=== PATIENT | female | born 1960 | race Caucasian/White ===

== ENCOUNTER 2018-09-26 20:59 | Inpatient (IN) | payer OTHER ==
[~2018-09-26] VITALS: Ht 167.6 cm; Wt 108.9 kg
--- NOTE | 2018-09-26 21:49 | PHYS DOC ---
Adult General Chief Complaint Chief Complaint: SKIN PROBLEM HPI HPI Patient is a 58 year old female presents to the ED complaining of left calf pain 2 days ago. Patient states that she felt pain to her left lower leg. States she looked and saw bite like kavon to left posterior calf. States she's been in and out of the hospital taking care of her whom has been admitted for MRSA to lower leg. States she noticed some redness surrounding the bite as well as swelling to left calf. Describes the pain as sharp. Rates the pain as 7 out of 10. Denies injury, recent travel, nausea/vomiting, fever, paresthesias, chest pain, shortness of breath. (YOAN BLUNT) Review of Systems Review of Systems Constitutional: Denies fever or chills [] Eyes: Denies change in visual acuity, redness, or eye pain [] HENT: Denies nasal congestion or sore throat [] Respiratory: Denies cough or shortness of breath [] Cardiovascular: No additional information not addressed in HPI [] GI: Denies abdominal pain, nausea, vomiting, bloody stools or diarrhea [] : Denies dysuria or hematuria [] Musculoskeletal: Complains of left lower calf pain. Denies back pain or joint pain [] Integument: Denies rash or skin lesions [] Neurologic: Denies headache, focal weakness or sensory changes [] All other systems were reviewed and found to be within normal limits, except as documented in this note. (YOAN BLUNT) Current Medications Current Medications Current Medications Medications (Trade) Dose Ordered Sig/Angela Start Time Stop Time Status Last Admin Dose Admin Acetaminophen/ Hydrocodone Bitart (Lortab 5/325) 1 tab 1X ONCE 09/26/18 22:00 09/26/18 22:19 DC 09/26/18 22:42 1 TAB (EVELINE ROJAS MD) Allergies Allergies Allergies Coded Allergies Type Severity Reaction Last Updated Verified No Known Drug Allergies 09/26/18 No (EVELINE ROJAS MD) Physical Exam Physical Exam Constitutional: Well developed, well nourished, no acute distress, non-toxic appearance. [] HENT: Normocephalic, atraumatic Eyes: PERRLA, EOMI, conjunctiva normal, no discharge. [] Neck: Normal range of motion, no tenderness, supple, no stridor. [] Cardiovascular:Heart rate regular rhythm, no murmur [] Lungs & Thorax: Bilateral breath sounds clear to auscultation [] Abdomen: Bowel sounds normal, soft, no tenderness, no masses, no pulsatile masses. [] Skin: Warm, dry, no erythema, no rash. [] Back: No tenderness, no CVA tenderness. [] Extremities: mild left calf tenderness/swelling. small bite like kavon to posterior left calf with surrounding erythema and warmth that is circumferential to left lower leg. no cyanosis, no clubbing, ROM intact, no edema. [] Neurologic: Alert and oriented X 3, normal motor function, normal sensory function, no focal deficits noted. [] Psychologic: Affect normal, judgement normal, mood normal. [] (YOAN BLUNT) Current Patient Data Vital Signs Vital Signs Date Time Temp Pulse Resp B/P (MAP) Pulse Ox O2 Delivery O2 Flow Rate FiO2 09/26/18 23:11 88 16 157/94 (115) 96 Room Air 09/26/18 21:50 98.3 98.3 (EVELINE ROJAS MD) Lab Values Laboratory Tests Test 09/26/18 22:50 White Blood Count 9.9 x10^3/uL (4.0-11.0) Red Blood Count 3.95 x10^6/uL (3.50-5.40) Hemoglobin 13.1 g/dL (12.0-15.5) Hematocrit 38.8 % (36.0-47.0) Mean Corpuscular Volume 98 fL (79-100) Mean Corpuscular Hemoglobin 33 pg (25-35) Mean Corpuscular Hemoglobin Concent 34 g/dL (31-37) Red Cell Distribution Width 13.2 % (11.5-14.5) Platelet Count 268 x10^3/uL (140-400) Neutrophils (%) (Auto) 71 % (31-73) Lymphocytes (%) (Auto) 20 % (24-48) L Monocytes (%) (Auto) 8 % (0-9) Eosinophils (%) (Auto) 1 % (0-3) Basophils (%) (Auto) 0 % (0-3) Neutrophils # (Auto) 7.1 x10^3uL (1.8-7.7) Lymphocytes # (Auto) 1.9 x10^3/uL (1.0-4.8) Monocytes # (Auto) 0.8 x10^3/uL (0.0-1.1) Eosinophils # (Auto) 0.1 x10^3/uL (0.0-0.7) Basophils # (Auto) 0.0 x10^3/uL (0.0-0.2) Erythrocyte Sedimentation Rate 27 (0-25) H Sodium Level 140 mmol/L (136-145) Potassium Level 4.0 mmol/L (3.5-5.1) Chloride Level 102 mmol/L (98-107) Carbon Dioxide Level 30 mmol/L (21-32) Anion Gap 8 (6-14) Blood Urea Nitrogen 13 mg/dL (7-20) Creatinine 0.8 mg/dL (0.6-1.0) Estimated GFR (Cockcroft-Gault) 73.9 Glucose Level 107 mg/dL (70-99) H Calcium Level 8.9 mg/dL (8.5-10.1) C-Reactive Protein, Quantitative 32.3 mg/L (0-3.3) H Laboratory Tests 09/26/18 22:50 Laboratory Tests 09/26/18 22:50 (EVELINE ROJAS MD) Lab Values Laboratory Tests Test 09/26/18 22:50 White Blood Count 9.9 x10^3/uL (4.0-11.0) Red Blood Count 3.95 x10^6/uL (3.50-5.40) Hemoglobin 13.1 g/dL (12.0-15.5) Hematocrit 38.8 % (36.0-47.0) Mean Corpuscular Volume 98 fL (79-100) Mean Corpuscular Hemoglobin 33 pg (25-35) Mean Corpuscular Hemoglobin Concent 34 g/dL (31-37) Red Cell Distribution Width 13.2 % (11.5-14.5) Platelet Count 268 x10^3/uL (140-400) Neutrophils (%) (Auto) 71 % (31-73) Lymphocytes (%) (Auto) 20 % (24-48) L Monocytes (%) (Auto) 8 % (0-9) Eosinophils (%) (Auto) 1 % (0-3) Basophils (%) (Auto) 0 % (0-3) Neutrophils # (Auto) 7.1 x10^3uL (1.8-7.7) Lymphocytes # (Auto) 1.9 x10^3/uL (1.0-4.8) Monocytes # (Auto) 0.8 x10^3/uL (0.0-1.1) Eosinophils # (Auto) 0.1 x10^3/uL (0.0-0.7) Basophils # (Auto) 0.0 x10^3/uL (0.0-0.2) Erythrocyte Sedimentation Rate 27 (0-25) H Sodium Level 140 mmol/L (136-145) Potassium Level 4.0 mmol/L (3.5-5.1) Chloride Level 102 mmol/L (98-107) Carbon Dioxide Level 30 mmol/L (21-32) Anion Gap 8 (6-14) Blood Urea Nitrogen 13 mg/dL (7-20) Creatinine 0.8 mg/dL (0.6-1.0) Estimated GFR (Cockcroft-Gault) 73.9 Glucose Level 107 mg/dL (70-99) H Calcium Level 8.9 mg/dL (8.5-10.1) C-Reactive Protein, Quantitative 32.3 mg/L (0-3.3) H Laboratory Tests 09/26/18 22:50 Laboratory Tests 09/26/18 22:50 (YOAN BLUNT) EKG EKG [] (YOAN BLUNT) Radiology/Procedures Radiology/Procedures [] (YOAN BLUNT) Course & Med Decision Making Course & Med Decision Making Pertinent Labs and Imaging studies reviewed. (See chart for details) []Discussed lab and imaging findings with patient. Small abscess seen on US. Negative for DVT. Incision and drainage completed. Mild purulent discharge from bite area. Patient tolerated well. Patient has surrounding erythema to lower leg that is circumferential. Will admit for IV antibiotics. Patient given vancomycin and Zosyn in the ED. Patient resting comfortably at this time. Attending physician will discuss with hospitalist for admission. (YOAN BLUNT) Course & Med Decision Making Staff Physician Addendum: I was working in the ER during the course of this patient's visit. I was available for consultation as needed, but I was not directly involved in the care of this patient. (EVELINE ROJAS MD) Dragon Disclaimer Dragon Disclaimer This electronic medical record was generated, in whole or in part, using a voice recognition dictation system. (YOAN BLUNT) Departure Departure Impression: Primary Impression: Cellulitis, leg Additional Impression: Abscess Disposition: ADMITTED INPATIENT Admitting Physician: Other (DONNELL) (YOAN BLUNT) Condition: STABLE Referrals: JANAY GREY MD (PCP) Problem Qualifiers YOAN BLUNT Sep 26, 2018 21:49 EVELINE ROJAS MD Sep 30, 2018 20:19
[2018-09-26] MEDS ORDERED: HYDROcodone/APAP 5/325MG 1 TAB TABLET PO ONE (22:00)
[2018-09-26] MEDS ORDERED: LISI1TAB7 PO (22:07)
[2018-09-26 22:58] LABS: BASO % 0 % (0-3); EOS # 0.1 x10^3/uL (0.0-0.7); EOS % 1 % (0-3); HEMATOCRIT 38.8 % (36.0-47.0); HEMOGLOBIN 13.1 g/dL (12.0-15.5); LYMPH # 1.9 x10^3/uL (1.0-4.8); LYMPH % 20 % (24-48); MEAN CORPUSCULAR HEMOGLOBIN 33 pg (25-35); MEAN CORPUSCULAR HGB CONC 34 g/dL (31-37); MEAN CORPUSCULAR VOLUME 98 fL (79-100); MONO # 0.8 x10^3/uL (0.0-1.1); MONO % 8 % (0-9); NEUT # 7.1 x10^3uL (1.8-7.7); NEUT % 71 % (31-73); PLATELET COUNT 268 x10^3/uL (140-400); RED BLOOD COUNT 3.95 x10^6/uL (3.50-5.40); RED CELL DISTRIBUTION WIDTH 13.2 % (11.5-14.5); WHITE BLOOD COUNT 9.9 x10^3/uL (4.0-11.0)
[2018-09-26 23:06] LABS: CALCIUM 8.9 mg/dL (8.5-10.1); CREATININE 0.8 mg/dL (0.6-1.0); GFR 73.9
[2018-09-26 23:08] LABS: C-REACTIVE PROTEIN 32.3 mg/L (0-3.3)
--- NOTE | 2018-09-26 23:58 | RAD ---
Left lower extremity venous duplex Doppler ultrasound HISTORY: Left leg pain and swelling, but by, redness. FINDINGS: No DVT with compressibility, patent color Doppler blood flow and augmentation of blood flow the left common femoral vein, profunda femoral vein, superficial femoral vein, popliteal vein and posterior tibial and peroneal veins in the calf. At the left mid calf clinical area of redness and there is a 6 mm small subcutaneous hypoechoic pocket of fluid a small abscess is possible. There are also superficial venous varicosities of the calf. IMPRESSION: Negative left leg for DVT. Subcentimeter hypoechoic fluid collection at the calf subcutaneous tissues a small abscess is possible. Electronically signed by: Franklyn Garcia MD (09/26/2018 11:55 PM) [id number]
[2018-09-27] MEDS ORDERED: LIDOCAINE WITH 8.4% SOD BICARB 3 ML DISP.SYRIN. INJ ONE (00:15)
[2018-09-27] MEDS ORDERED: VANCOMYCIN 1.25 GM in IV NORMAL SALINE 250ML 250 ML IV ONE (00:45)
[2018-09-27] MEDS ORDERED: PIPERACILLIN/TAZOBACTAM 3.375 GM in IV NORMAL SALINE 50ML 50 ML IV ONE (01:00)
[2018-09-27] MEDS ORDERED: VANCOMYCIN 2 GM in IV NORMAL SALINE 500ML BAG 500 ML IV ONE (01:00)
[2018-09-27] MEDS ORDERED: ALPR1TAB6 PO (02:47)
[2018-09-27 03:00] VITALS: BP 147/92
[2018-09-27] MEDS: HYDROcodone/APAP 5/325MG 1 TAB TABLET PO PRN ×3 (03:16→19:32)
--- NOTE | 2018-09-27 03:33 | NUR ---
pt was admitted to the unit at approximally 0130 from ED via wheel chair. Report received from Levy. Vitals stable. Heart Health packet given, cafeteria and mediation papers explained.
[2018-09-27 07:00] VITALS: BP 121/73
--- NOTE | 2018-09-27 08:11 | RAD ---
3 views left knee 09/26/2018 9:37 PM Indication: PAIN, NO KNOWN INJURY Comparison: None Findings: Meniscal calcification is noted. No fracture or dislocation is seen. Joint spaces appear relatively preserved. No acute soft tissue injury is seen. IMPRESSION: 1. No evidence of acute osseous abnormality 2. Meniscal calcification noted. Electronically signed by: Josr De Jesus MD (09/27/2018 8:08 AM) [id number]
[2018-09-27 11:00] VITALS: BP 115/72
[2018-09-27 15:00] VITALS: BP 116/77
--- NOTE | 2018-09-27 15:56 | PDOC1 ---
History and Physical Date of Admission Date of Admission DATE: 09/27/18 TIME: 15:45 Identification/Chief Complaint Chief Complaint LE swelling Problems: (1) Abscess (2) Cellulitis, leg Source Source: Chart review, Patient History of Present Illness History of Present Illness 58 year old female hx of HTN and anxiety who presents with 1 day hx of LLE swelling, redness and pain. reports seeing bite drew on posterior calf. patient 's currently hospitalized with cellulitis. pain as sharp and 7 out of 10. Denies injury. no fever or paresthesias. no chest pain. no hx of DVT or PE. no prior hx of cellulitis. Past Medical History Past Medical History HTN, anxiety Family History Family History denies Social History Smoke: <1 pack per day ALCOHOL: none Drugs: None Current Medications Current Medications Current Medications Acetaminophen/ Hydrocodone Bitart (Lortab 5/325) 1 tab 1X ONCE PO Last administered on 09/26/18at 22:42; Start 09/26/18 at 22:00; Stop 09/26/18 at 22:19 ; Status DC Lidocaine/Sodium Bicarbonate (Buffered Lidocaine 1%) 3 ml 1X ONCE INJ Last administered on 09/27/18at 00:15; Start 09/27/18 at 00:15; Stop 09/27/18 at 00:17 ; Status DC Piperacillin Sod/ Tazobactam Sod 3.375 gm/Sodium Chloride 50 ml @ 100 mls/hr 1X ONCE IV Last administered on 09/27/18at 01:18; Start 09/27/18 at 01:00; Stop 09/27/18 at 01:29; Status DC Vancomycin HCl 1.25 gm/Sodium Chloride 250 ml @ 166.667 mls/hr 1X ONCE IV ; Start 09/27/18 at 00:45; Stop 09/27/18 at 00:50; Status DC Vancomycin HCl 2 gm/Sodium Chloride 500 ml @ 250 mls/hr 1X ONCE IV Last administered on 09/27/18at 02:20; Start 09/27/18 at 01:00; Stop 09/27/18 at 02:59 ; Status DC Acetaminophen/ Hydrocodone Bitart (Lortab 5/325) 1 tab PRN Q4HRS PRN PO PAIN Last administered on 09/27/18at 10:52; Start 09/27/18 at 03:00 Vancomycin HCl (Vanco Per Pharmacy) 1 each PRN DAILY PRN MC SEE COMMENTS; Start 09/27/18 at 15:30 Cefepime HCl (Maxipime) 1 gm Q8HRS IVP ; Start 09/27/18 at 15:30 Vancomycin HCl 2 gm/Sodium Chloride 500 ml @ 250 mls/hr Q12H IV ; Start at 16:00 Non-Formulary Medication (Lisinopril/ Hydrochlorothiazide (Lisinopril-Hctz 20- 25 Mg Tab)) 1 tab DAILY PO ; Start 09/28/18 at 09:00; Status UNV Active Scripts Active Reported Alprazolam 1 Mg Tablet 1 Tab PO DAILY(AT BEDTIME) Lisinopril-Hctz 20-25 Mg Tab (Lisinopril/Hydrochlorothiazide) 1 Each Tablet 1 Tab PO DAILY Allergies Allergies: Coded Allergies: No Known Drug Allergies (Unverified , 09/26/18) ROS Review of System CONSTITUTIONAL: No fever or chills EYES: No recent changes SKIN: No rash or itching CARDIOVASCULAR: No chest pain, syncope, palpitations, or edema RESPIRATORY: No SOB or cough GASTROINTESTINAL: No nausea, vomiting or abdominal pain NEUROLOGICAL: No headaches or weakness ENDOCRINE: No cold or heat intolerance GENITOURINARY: No urgency or frequency of urination MUSCULOSKELETAL: No back pain or joint pain LYMPHATICS: No enlarged lymph nodes PSYCHIATRIC: No anxiety or depression Physical Exam Physical Exam GENERAL: No apparent distress. Alert and oriented. HEENT: Head normocephalic, atraumatic. NECK: Supple LUNGS: Clear to auscultation. HEART: RRR, S1, S2 present, pulses intact ABDOMEN: Soft, positive bowel sounds. EXTREMITIES: LLE swelling with bandage NEUROLOGIC: Normal speech, normal tone PSYCHIATRIC: Normal affect, normal mood. SKIN: No ulceration. Vitals Vitals Vital Signs Date Time Temp Pulse Resp B/P (MAP) Pulse Ox O2 Delivery O2 Flow Rate FiO2 09/27/18 11:52 14 95 Room Air 09/27/18 11:00 98.2 78 115/72 (86) 98.2 Labs Labs Laboratory Tests Test 09/26/18 22:50 09/27/18 01:18 White Blood Count 9.9 x10^3/uL (4.0-11.0) Red Blood Count 3.95 x10^6/uL (3.50-5.40) Hemoglobin 13.1 g/dL (12.0-15.5) Hematocrit 38.8 % (36.0-47.0) Mean Corpuscular Volume 98 fL (79-100) Mean Corpuscular Hemoglobin 33 pg (25-35) Mean Corpuscular Hemoglobin Concent 34 g/dL (31-37) Red Cell Distribution Width 13.2 % (11.5-14.5) Platelet Count 268 x10^3/uL (140-400) Neutrophils (%) (Auto) 71 % (31-73) Lymphocytes (%) (Auto) 20 % (24-48) Monocytes (%) (Auto) 8 % (0-9) Eosinophils (%) (Auto) 1 % (0-3) Basophils (%) (Auto) 0 % (0-3) Neutrophils # (Auto) 7.1 x10^3uL (1.8-7.7) Lymphocytes # (Auto) 1.9 x10^3/uL (1.0-4.8) Monocytes # (Auto) 0.8 x10^3/uL (0.0-1.1) Eosinophils # (Auto) 0.1 x10^3/uL (0.0-0.7) Basophils # (Auto) 0.0 x10^3/uL (0.0-0.2) Erythrocyte Sedimentation Rate 27 (0-25) Sodium Level 140 mmol/L (136-145) Potassium Level 4.0 mmol/L (3.5-5.1) Chloride Level 102 mmol/L (98-107) Carbon Dioxide Level 30 mmol/L (21-32) Anion Gap 8 (6-14) Blood Urea Nitrogen 13 mg/dL (7-20) Creatinine 0.8 mg/dL (0.6-1.0) Estimated GFR (Cockcroft-Gault) 73.9 Glucose Level 107 mg/dL (70-99) Calcium Level 8.9 mg/dL (8.5-10.1) C-Reactive Protein, Quantitative 32.3 mg/L (0-3.3) Lactic Acid Level 0.7 mmol/L (0.4-2.0) Laboratory Tests Test 09/26/18 22:50 09/27/18 01:18 White Blood Count 9.9 x10^3/uL (4.0-11.0) Red Blood Count 3.95 x10^6/uL (3.50-5.40) Hemoglobin 13.1 g/dL (12.0-15.5) Hematocrit 38.8 % (36.0-47.0) Mean Corpuscular Volume 98 fL (79-100) Mean Corpuscular Hemoglobin 33 pg (25-35) Mean Corpuscular Hemoglobin Concent 34 g/dL (31-37) Red Cell Distribution Width 13.2 % (11.5-14.5) Platelet Count 268 x10^3/uL (140-400) Neutrophils (%) (Auto) 71 % (31-73) Lymphocytes (%) (Auto) 20 % (24-48) Monocytes (%) (Auto) 8 % (0-9) Eosinophils (%) (Auto) 1 % (0-3) Basophils (%) (Auto) 0 % (0-3) Neutrophils # (Auto) 7.1 x10^3uL (1.8-7.7) Lymphocytes # (Auto) 1.9 x10^3/uL (1.0-4.8) Monocytes # (Auto) 0.8 x10^3/uL (0.0-1.1) Eosinophils # (Auto) 0.1 x10^3/uL (0.0-0.7) Basophils # (Auto) 0.0 x10^3/uL (0.0-0.2) Erythrocyte Sedimentation Rate 27 (0-25) Sodium Level 140 mmol/L (136-145) Potassium Level 4.0 mmol/L (3.5-5.1) Chloride Level 102 mmol/L (98-107) Carbon Dioxide Level 30 mmol/L (21-32) Anion Gap 8 (6-14) Blood Urea Nitrogen 13 mg/dL (7-20) Creatinine 0.8 mg/dL (0.6-1.0) Estimated GFR (Cockcroft-Gault) 73.9 Glucose Level 107 mg/dL (70-99) Calcium Level 8.9 mg/dL (8.5-10.1) C-Reactive Protein, Quantitative 32.3 mg/L (0-3.3) Lactic Acid Level 0.7 mmol/L (0.4-2.0) VTE Prophylaxis Ordered VTE Prophylaxis Devices: No VTE Pharmacological Prophylaxi: Yes Assessment/Plan Assessment/Plan ASSESSMENT LLE cellulitis s/p I and D in ER HTN PLAN - admit to medical floor bed - obtain blood cultures - US negative for DVT - xray negative - continue vanc and zosyn - restart home BP meds - local wound care - heparin for dvt ppx - full code TRINITY JACOBO MD Sep 27, 2018 15:56
[2018-09-27] MEDS: CEFEPIME HCL IV Push 1 GM VIAL. IVP SCH ×2 (15:59→22:02)
[2018-09-27] MEDS: hydroCHLOROthiazide 25 MG TABLET PO SCH (16:00)
[2018-09-27] MEDS: HEPARIN for SUB-Q USE 5,000 UNIT/ML VIAL. SQ SCH ×2 (16:00→19:33)
[2018-09-27] MEDS: LISINOPRIL 20 MG TABLET PO SCH (16:00)
[2018-09-27] MEDS: VANCOMYCIN 2 GM in IV NORMAL SALINE 500ML BAG 500 ML IV SCH (16:05)
[2018-09-27 19:00] VITALS: BP 138/84
[2018-09-27] MEDS: VANCOMYCIN PER PHARMACY MC PRN (19:34)
--- NOTE | 2018-09-27 19:39 | NUR ---
Pharmacy Vancomycin Dosing Note S:Consulted to monitor and dose vancomycin started 09/27/18. O:ISIAHSCARLETT Wong is a 58 year old F with Cellulitis . Height: 5 feet, 7 inches Weight: 127.630877 kg [place] Body Weight: 61.60 Adjusted Body Weight: 87.76 Dosing Weight: Actual Other Antibiotics: CEFEPIME 09/27 - LABS: Last BUN: 13 Last Creatinine: 0.8 Creatinine Clearance: >100 mL/min Last WBC: 9.9 Last Procalcitonin: - Tmax (past 24 hours): 98.8 Microbiology: 09/27 PENDING I/O: 550/- Drug Levels: Last level: on at Last dose given 09/27/18 at 1605 Vancomycin Dosing: Loading Dose: x1 Dosing Weight: Actual Target Trough: 10-20 A: Based on: WEIGHT, CRCL>100, CELLULITIS (NON-SEVERE INFECTION), P: 1. INITIATE Vancomycin 2000 mg IV q12h 2. Follow up Trough level on 09/29/18 at 0330 3. Pharmacy will continue to monitor, follow and adjust therapy as needed. JASON GUERRA [facility], 09/27/18 [id number]
[2018-09-27 23:00] VITALS: BP 130/69
[2018-09-28 03:00] VITALS: BP 125/74
[2018-09-28] MEDS: HYDROcodone/APAP 5/325MG 1 TAB TABLET PO PRN ×2 (04:07→11:54)
[2018-09-28] MEDS: VANCOMYCIN 2 GM in IV NORMAL SALINE 500ML BAG 500 ML IV SCH ×2 (04:08→16:31)
[2018-09-28] MEDS: HEPARIN for SUB-Q USE 5,000 UNIT/ML VIAL. SQ SCH ×3 (06:00→22:00)
[2018-09-28] MEDS: CEFEPIME HCL IV Push 1 GM VIAL. IVP SCH ×3 (06:05→22:00)
[2018-09-28 06:45] LABS: CREATININE 0.6 mg/dL (0.6-1.0)
[2018-09-28 07:00] VITALS: BP 113/76
[2018-09-28] MEDS: LISINOPRIL 20 MG TABLET PO SCH (08:31)
[2018-09-28] MEDS: hydroCHLOROthiazide 25 MG TABLET PO SCH (08:31)
--- NOTE | 2018-09-28 09:21 | NUR ---
SW following pt for anticipated dc needs. Chart reviewed and DW RN. Pt lives at home with spouse who is also currently in admitted at [facility]. PT/OT pending. SW will await for PT/OT recommendations to assess skilled needs. Will continue to follow.
[2018-09-28 11:00] VITALS: BP 116/68
--- NOTE | 2018-09-28 12:04 | PDOC ---
PROGRESS NOTES Chief Complaint Chief Complaint Lowe Extremity swelling and pain Cellulitis HTN Anxiety History of Present Illness History of Present Illness Pt seen and examined this morning. Pt sitting upright in husbands room next door. Pt states the pain and swelling are improving. Denies F/C, N/V Vitals Vitals Vital Signs Date Time Temp Pulse Resp B/P (MAP) Pulse Ox O2 Delivery O2 Flow Rate FiO2 09/28/18 11:00 98.3 78 18 116/68 (84) 96 Room Air 98.3 Physical Exam General: Alert, Oriented X3, Cooperative, No acute distress Heart: Regular rate, Normal S1, Normal S2, No murmurs Lungs: Clear, Other (No crackles, wheezes or rales) Abdomen: Normal bowel sounds, Soft, No tenderness, No masses Extremities: No clubbing, No cyanosis, Normal pulses, Other (LE swelling, errythema receding from margin, sligt TTP) Skin: No breakdown, Other (dressing inplace C/D/I) Labs LABS Laboratory Tests Test 09/28/18 06:00 Creatinine 0.6 mg/dL (0.6-1.0) Estimated GFR (Cockcroft-Gault) 103.0 Review of Systems Review of Systems Denies Fevers/Chills Denies Nausea/Vomiting Denies Chest pain, Shortness of Air Assessment and Plan Assessmemt and Plan Assessment: LE Cellulitis- Improving: afebrile, erythema receding HTN Anxiety u/s (-) for DVT I/D in ER Blood Cx revealing staph 1/2 bottles, likely contaminant Plan: ABX- Vancomycin and Zosyn, Pharmacy following Local WC Likely discharge home tomorrow Home Meds- Lisinopril Heparin offered for DVT ppx, pt respectfully declined and states she has been up out of bed and is walking around routinely. Recheck labs in AM PT/OT orders Comment Review of Relevant I have reviewed the following items kavon (where applicable) has been applied. Labs Laboratory Tests Test 09/26/18 22:50 09/27/18 01:18 09/28/18 06:00 White Blood Count 9.9 x10^3/uL (4.0-11.0) Red Blood Count 3.95 x10^6/uL (3.50-5.40) Hemoglobin 13.1 g/dL (12.0-15.5) Hematocrit 38.8 % (36.0-47.0) Mean Corpuscular Volume 98 fL (79-100) Mean Corpuscular Hemoglobin 33 pg (25-35) Mean Corpuscular Hemoglobin Concent 34 g/dL (31-37) Red Cell Distribution Width 13.2 % (11.5-14.5) Platelet Count 268 x10^3/uL (140-400) Neutrophils (%) (Auto) 71 % (31-73) Lymphocytes (%) (Auto) 20 % (24-48) Monocytes (%) (Auto) 8 % (0-9) Eosinophils (%) (Auto) 1 % (0-3) Basophils (%) (Auto) 0 % (0-3) Neutrophils # (Auto) 7.1 x10^3uL (1.8-7.7) Lymphocytes # (Auto) 1.9 x10^3/uL (1.0-4.8) Monocytes # (Auto) 0.8 x10^3/uL (0.0-1.1) Eosinophils # (Auto) 0.1 x10^3/uL (0.0-0.7) Basophils # (Auto) 0.0 x10^3/uL (0.0-0.2) Erythrocyte Sedimentation Rate 27 (0-25) Sodium Level 140 mmol/L (136-145) Potassium Level 4.0 mmol/L (3.5-5.1) Chloride Level 102 mmol/L (98-107) Carbon Dioxide Level 30 mmol/L (21-32) Anion Gap 8 (6-14) Blood Urea Nitrogen 13 mg/dL (7-20) Creatinine 0.8 mg/dL (0.6-1.0) 0.6 mg/dL (0.6-1.0) Estimated GFR (Cockcroft-Gault) 73.9 103.0 Glucose Level 107 mg/dL (70-99) Calcium Level 8.9 mg/dL (8.5-10.1) C-Reactive Protein, Quantitative 32.3 mg/L (0-3.3) Lactic Acid Level 0.7 mmol/L (0.4-2.0) Laboratory Tests Test 09/28/18 06:00 Creatinine 0.6 mg/dL (0.6-1.0) Estimated GFR (Cockcroft-Gault) 103.0 Microbiology 09/27/18 Blood Culture - Final, Complete Medications Current Medications Acetaminophen/ Hydrocodone Bitart (Lortab 5/325) 1 tab 1X ONCE PO Last administered on 09/26/18at 22:42; Start 09/26/18 at 22:00; Stop 09/26/18 at 22:19 ; Status DC Lidocaine/Sodium Bicarbonate (Buffered Lidocaine 1%) 3 ml 1X ONCE INJ Last administered on 09/27/18at 00:15; Start 09/27/18 at 00:15; Stop 09/27/18 at 00:17 ; Status DC Piperacillin Sod/ Tazobactam Sod 3.375 gm/Sodium Chloride 50 ml @ 100 mls/hr 1X ONCE IV Last administered on 09/27/18at 01:18; Start 09/27/18 at 01:00; Stop 09/27/18 at 01:29; Status DC Vancomycin HCl 1.25 gm/Sodium Chloride 250 ml @ 166.667 mls/hr 1X ONCE IV ; Start 09/27/18 at 00:45; Stop 09/27/18 at 00:50; Status DC Vancomycin HCl 2 gm/Sodium Chloride 500 ml @ 250 mls/hr 1X ONCE IV Last administered on 09/27/18at 02:20; Start 09/27/18 at 01:00; Stop 09/27/18 at 02:59 ; Status DC Acetaminophen/ Hydrocodone Bitart (Lortab 5/325) 1 tab PRN Q4HRS PRN PO PAIN Last administered on 09/28/18at 04:07; Start 09/27/18 at 03:00 Vancomycin HCl (Vanco Per Pharmacy) 1 each PRN DAILY PRN MC SEE COMMENTS Last administered on 09/27/18at 19:34; Start 09/27/18 at 15:30 Cefepime HCl (Maxipime) 1 gm Q8HRS IVP Last administered on 09/28/18at 06:05; Start 09/27/18 at 15:30 Vancomycin HCl 2 gm/Sodium Chloride 500 ml @ 250 mls/hr Q12H IV Last administered on 09/28/18at 04:08; Start 09/27/18 at 16:00 Lisinopril (Prinivil) 20 mg DAILY PO Last administered on 09/28/18at 08:31; Start 09/27/18 at 16:00 Hydrochlorothiazide (Hydrodiuril) 25 mg DAILY PO Last administered on at 08:31; Start 09/27/18 at 16:00 Heparin Sodium (Porcine) (Heparin Sodium) 5,000 unit Q8HRS SQ ; Start 09/27/18 at 16:00 Vancomycin HCl (Vancomycin Trough Level) 1 each 1X ONCE MC ; Start 09/29/18 at 03:30; Stop 09/29/18 at 03:31 Active Scripts Active Reported Alprazolam 1 Mg Tablet 1 Tab PO DAILY(AT BEDTIME) Lisinopril-Hctz 20-25 Mg Tab (Lisinopril/Hydrochlorothiazide) 1 Each Tablet 1 Tab PO DAILY Vitals/I & O Vital Sign - Last 24 Hours 09/27/18 09/27/18 09/27/18 09/27/18 15:00 19:00 19:32 20:00 Temp 98.1 98.2 98.1 98.2 Pulse 87 86 Resp 16 16 16 B/P (MAP) 116/77 (90) 138/84 (102) Pulse Ox 92 98 O2 Delivery Room Air Room Air Room Air 09/27/18 09/28/18 09/28/18 09/28/18 23:00 03:00 04:07 05:10 Temp 97.6 97.5 97.6 97.5 Pulse 65 81 Resp 16 16 16 16 B/P (MAP) 130/69 (89) 125/74 (91) Pulse Ox 95 94 94 O2 Delivery Room Air Room Air Room Air Room Air 09/28/18 09/28/18 09/28/18 09/28/18 07:00 07:50 08:31 11:00 Temp 98.1 98.3 98.1 98.3 Pulse 84 84 78 Resp 18 18 B/P (MAP) 113/76 (88) 113/76 116/68 (84) Pulse Ox 94 96 O2 Delivery Room Air Room Air Room Air Intake and Output 09/27/18 09/27/18 09/28/18 15:00 23:00 07:00 Intake Total 350 ml 380 ml Balance 350 ml 380 ml LIZBETH GOYAL K III DO Sep 28, 2018 12:04
[2018-09-28] MEDS: VANCOMYCIN PER PHARMACY MC PRN (13:24)
[2018-09-28 15:00] VITALS: BP 110/76
[2018-09-28] MEDS: NICOTINE 14MG PATCH. TD PRN (18:32)
[2018-09-28 19:00] VITALS: BP 127/74
[2018-09-28] MEDS ORDERED: ALPRAZolam 0.5 MG TABLET PO PRN (19:15)
[2018-09-28] MEDS: LACTOBACILLUS RHAMNOSUS GG 1 CAPSULE. PO SCH (22:03)
[2018-09-28 23:00] VITALS: BP 140/83
[2018-09-29] MEDS: HYDROcodone/APAP 5/325MG 1 TAB TABLET PO PRN ×4 (02:18→21:11)
[2018-09-29 03:00] VITALS: BP 116/61
[2018-09-29 03:43] LABS: BASO % 1 % (0-3); EOS # 0.1 x10^3/uL (0.0-0.7); EOS % 2 % (0-3); HEMOGLOBIN 12.8 g/dL (12.0-15.5); LYMPH # 2.1 x10^3/uL (1.0-4.8); LYMPH % 35 % (24-48); MEAN CORPUSCULAR HEMOGLOBIN 33 pg (25-35); MEAN CORPUSCULAR HGB CONC 34 g/dL (31-37); MEAN CORPUSCULAR VOLUME 99 fL (79-100); MONO # 0.7 x10^3/uL (0.0-1.1); MONO % 11 % (0-9); NEUT % 51 % (31-73); PLATELET COUNT 240 x10^3/uL (140-400); RED BLOOD COUNT 3.85 x10^6/uL (3.50-5.40); RED CELL DISTRIBUTION WIDTH 12.9 % (11.5-14.5); WHITE BLOOD COUNT 5.9 x10^3/uL (4.0-11.0)
[2018-09-29 03:55] LABS: CALCIUM 8.5 mg/dL (8.5-10.1); CREATININE 0.7 mg/dL (0.6-1.0); GFR 86.2; POTASSIUM 3.8 mmol/L (3.5-5.1)
[2018-09-29] MEDS: VANCOMYCIN 2 GM in IV NORMAL SALINE 500ML BAG 500 ML IV SCH ×2 (04:20→15:52)
[2018-09-29] MEDS: VANCOMYCIN PER PHARMACY MC PRN (04:51)
--- NOTE | 2018-09-29 04:53 | NUR ---
Pharmacy Vancomycin Dosing Note S: Consulted to monitor and dose vancomycin started 09/27/18. O: SCARLETT JOYCE is a 58 year old F with Cellulitis, . Other Antibiotics: CEFEPIME 09/27 - LABS: Last BUN: 13 Last Creatinine: 0.8 Creatinine Clearance: >120 mL/min Last WBC: 9.9 Last Procalcitonin: - Tmax (past 24 hours): 100 Microbiology: 09/28 09/27 BCX GPC 1/2 BOTTLES I/O: 730/- Drug Levels: Last Trough level: 14.0 on 09/29/18 at 0330 Last dose given 09/28/18 at 1631 Vancomycin Dosing: Dosing Weight: Actual Target Trough: 10-20 A: Based on: Trough, Actual Wt and CrCl P: 1. 09/29/18 0400 Continue Vancomycin 2000 mg IV q12h 2. Follow up Trough level in 5 to 7 days as needed 3. Pharmacy will continue to monitor, follow and adjust therapy as needed. TRISH MOON R[facility], 09/29/18 [id number] Signed: 09/29/18 at 0454 by TRISH MOON RPH PHA
[2018-09-29] MEDS: HEPARIN for SUB-Q USE 5,000 UNIT/ML VIAL. SQ SCH ×3 (05:48→21:16)
[2018-09-29 07:00] VITALS: BP 124/71
[2018-09-29] MEDS: CEFEPIME HCL IV Push 1 GM VIAL. IVP SCH ×3 (07:12→21:11)
[2018-09-29] MEDS: LACTOBACILLUS RHAMNOSUS GG 1 CAPSULE. PO SCH ×2 (08:42→21:11)
[2018-09-29] MEDS: LISINOPRIL 20 MG TABLET PO SCH (08:42)
[2018-09-29] MEDS: hydroCHLOROthiazide 25 MG TABLET PO SCH (08:42)
[2018-09-29] MEDS: NICOTINE 14MG PATCH. TD PRN (10:03)
[2018-09-29 11:00] VITALS: BP 131/80
--- NOTE | 2018-09-29 12:01 | PDOC ---
PROGRESS NOTES Chief Complaint Chief Complaint Lowe Extremity swelling and pain Cellulitis Negative left leg for DVT. Subcentimeter hypoechoic fluid collection at the calf subcutaneous tissues a small abscess is possible. HTN Anxiety PLAN CONSULT ID History of Present Illness History of Present Illness Pt seen and examined this morning. Pt sitting upright Pt states the pain and swelling are improving. Denies F/C, N/V Vitals Vitals Vital Signs Date Time Temp Pulse Resp B/P (MAP) Pulse Ox O2 Delivery O2 Flow Rate FiO2 09/29/18 11:00 97.9 81 16 131/80 (97) 97 Room Air 97.9 Physical Exam General: Alert, Oriented X3, Cooperative, No acute distress, mild distress Heart: Regular rate, Normal S1, Normal S2, No murmurs Lungs: Clear, Other (No crackles, wheezes or rales) Abdomen: Normal bowel sounds, Soft, No tenderness, No masses Extremities: No clubbing, No cyanosis, Normal pulses, Other (LE swelling, errythema receding from margin, sligt TTP) Skin: No breakdown, Other (dressing inplace C/D/I) Labs LABS Left lower extremity venous duplex Doppler ultrasound HISTORY: Left leg pain and swelling, but by, redness. FINDINGS: No DVT with compressibility, patent color Doppler blood flow and augmentation of blood flow the left common femoral vein, profunda femoral vein, superficial femoral vein, popliteal vein and posterior tibial and peroneal veins in the calf. At the left mid calf clinical area of redness and there is a 6 mm small subcutaneous hypoechoic pocket of fluid a small abscess is possible. There are also superficial venous varicosities of the calf. IMPRESSION: Negative left leg for DVT. Subcentimeter hypoechoic fluid collection at the calf subcutaneous tissues a small abscess is possible. Electronically signed by: Franklyn Garcia MD (09/26/2018 11:55 PM) [facility] DICTATED and SIGNED BY: FRANKLYN GARCIA MD DATE: 09/26/18 1321 Laboratory Tests Test 09/29/18 03:30 White Blood Count 5.9 x10^3/uL (4.0-11.0) Red Blood Count 3.85 x10^6/uL (3.50-5.40) Hemoglobin 12.8 g/dL (12.0-15.5) Hematocrit 38.0 % (36.0-47.0) Mean Corpuscular Volume 99 fL (79-100) Mean Corpuscular Hemoglobin 33 pg (25-35) Mean Corpuscular Hemoglobin Concent 34 g/dL (31-37) Red Cell Distribution Width 12.9 % (11.5-14.5) Platelet Count 240 x10^3/uL (140-400) Neutrophils (%) (Auto) 51 % (31-73) Lymphocytes (%) (Auto) 35 % (24-48) Monocytes (%) (Auto) 11 % (0-9) Eosinophils (%) (Auto) 2 % (0-3) Basophils (%) (Auto) 1 % (0-3) Neutrophils # (Auto) 3.0 x10^3uL (1.8-7.7) Lymphocytes # (Auto) 2.1 x10^3/uL (1.0-4.8) Monocytes # (Auto) 0.7 x10^3/uL (0.0-1.1) Eosinophils # (Auto) 0.1 x10^3/uL (0.0-0.7) Basophils # (Auto) 0.0 x10^3/uL (0.0-0.2) Sodium Level 140 mmol/L (136-145) Potassium Level 3.8 mmol/L (3.5-5.1) Chloride Level 106 mmol/L (98-107) Carbon Dioxide Level 26 mmol/L (21-32) Anion Gap 8 (6-14) Blood Urea Nitrogen 12 mg/dL (7-20) Creatinine 0.7 mg/dL (0.6-1.0) Estimated GFR (Cockcroft-Gault) 86.2 Glucose Level 116 mg/dL (70-99) Calcium Level 8.5 mg/dL (8.5-10.1) Vancomycin Level Trough 14.0 mcg/mL (10.0-20.0) Vancomycin Last Dose Date Vancomycin Last Dose Time Comment Review of Relevant I have reviewed the following items kavon (where applicable) has been applied. Labs Laboratory Tests Test 09/28/18 06:00 09/29/18 03:30 Creatinine 0.6 mg/dL (0.6-1.0) 0.7 mg/dL (0.6-1.0) Estimated GFR (Cockcroft-Gault) 103.0 86.2 White Blood Count 5.9 x10^3/uL (4.0-11.0) Red Blood Count 3.85 x10^6/uL (3.50-5.40) Hemoglobin 12.8 g/dL (12.0-15.5) Hematocrit 38.0 % (36.0-47.0) Mean Corpuscular Volume 99 fL (79-100) Mean Corpuscular Hemoglobin 33 pg (25-35) Mean Corpuscular Hemoglobin Concent 34 g/dL (31-37) Red Cell Distribution Width 12.9 % (11.5-14.5) Platelet Count 240 x10^3/uL (140-400) Neutrophils (%) (Auto) 51 % (31-73) Lymphocytes (%) (Auto) 35 % (24-48) Monocytes (%) (Auto) 11 % (0-9) Eosinophils (%) (Auto) 2 % (0-3) Basophils (%) (Auto) 1 % (0-3) Neutrophils # (Auto) 3.0 x10^3uL (1.8-7.7) Lymphocytes # (Auto) 2.1 x10^3/uL (1.0-4.8) Monocytes # (Auto) 0.7 x10^3/uL (0.0-1.1) Eosinophils # (Auto) 0.1 x10^3/uL (0.0-0.7) Basophils # (Auto) 0.0 x10^3/uL (0.0-0.2) Sodium Level 140 mmol/L (136-145) Potassium Level 3.8 mmol/L (3.5-5.1) Chloride Level 106 mmol/L (98-107) Carbon Dioxide Level 26 mmol/L (21-32) Anion Gap 8 (6-14) Blood Urea Nitrogen 12 mg/dL (7-20) Glucose Level 116 mg/dL (70-99) Calcium Level 8.5 mg/dL (8.5-10.1) Vancomycin Level Trough 14.0 mcg/mL (10.0-20.0) Vancomycin Last Dose Date Vancomycin Last Dose Time Laboratory Tests Test 09/29/18 03:30 White Blood Count 5.9 x10^3/uL (4.0-11.0) Red Blood Count 3.85 x10^6/uL (3.50-5.40) Hemoglobin 12.8 g/dL (12.0-15.5) Hematocrit 38.0 % (36.0-47.0) Mean Corpuscular Volume 99 fL (79-100) Mean Corpuscular Hemoglobin 33 pg (25-35) Mean Corpuscular Hemoglobin Concent 34 g/dL (31-37) Red Cell Distribution Width 12.9 % (11.5-14.5) Platelet Count 240 x10^3/uL (140-400) Neutrophils (%) (Auto) 51 % (31-73) Lymphocytes (%) (Auto) 35 % (24-48) Monocytes (%) (Auto) 11 % (0-9) Eosinophils (%) (Auto) 2 % (0-3) Basophils (%) (Auto) 1 % (0-3) Neutrophils # (Auto) 3.0 x10^3uL (1.8-7.7) Lymphocytes # (Auto) 2.1 x10^3/uL (1.0-4.8) Monocytes # (Auto) 0.7 x10^3/uL (0.0-1.1) Eosinophils # (Auto) 0.1 x10^3/uL (0.0-0.7) Basophils # (Auto) 0.0 x10^3/uL (0.0-0.2) Sodium Level 140 mmol/L (136-145) Potassium Level 3.8 mmol/L (3.5-5.1) Chloride Level 106 mmol/L (98-107) Carbon Dioxide Level 26 mmol/L (21-32) Anion Gap 8 (6-14) Blood Urea Nitrogen 12 mg/dL (7-20) Creatinine 0.7 mg/dL (0.6-1.0) Estimated GFR (Cockcroft-Gault) 86.2 Glucose Level 116 mg/dL (70-99) Calcium Level 8.5 mg/dL (8.5-10.1) Vancomycin Level Trough 14.0 mcg/mL (10.0-20.0) Vancomycin Last Dose Date Vancomycin Last Dose Time Microbiology 09/27/18 Blood Culture - Final, Complete Medications Current Medications Acetaminophen/ Hydrocodone Bitart (Lortab 5/325) 1 tab 1X ONCE PO Last administered on 09/26/18at 22:42; Start 09/26/18 at 22:00; Stop 09/26/18 at 22:19 ; Status DC Lidocaine/Sodium Bicarbonate (Buffered Lidocaine 1%) 3 ml 1X ONCE INJ Last administered on 09/27/18at 00:15; Start 09/27/18 at 00:15; Stop 09/27/18 at 00:17 ; Status DC Piperacillin Sod/ Tazobactam Sod 3.375 gm/Sodium Chloride 50 ml @ 100 mls/hr 1X ONCE IV Last administered on 09/27/18at 01:18; Start 09/27/18 at 01:00; Stop 09/27/18 at 01:29; Status DC Vancomycin HCl 1.25 gm/Sodium Chloride 250 ml @ 166.667 mls/hr 1X ONCE IV ; Start 09/27/18 at 00:45; Stop 09/27/18 at 00:50; Status DC Vancomycin HCl 2 gm/Sodium Chloride 500 ml @ 250 mls/hr 1X ONCE IV Last administered on 09/27/18at 02:20; Start 09/27/18 at 01:00; Stop 09/27/18 at 02:59 ; Status DC Acetaminophen/ Hydrocodone Bitart (Lortab 5/325) 1 tab PRN Q4HRS PRN PO PAIN Last administered on 09/29/18 08:46; Start 09/27/18 at 03:00 Vancomycin HCl (Vanco Per Pharmacy) 1 each PRN DAILY PRN MC SEE COMMENTS Last administered on 09/29/18at 04:51; Start 09/27/18 at 15:30 Cefepime HCl (Maxipime) 1 gm Q8HRS IVP Last administered on 09/29/18 07:12; Start 09/27/18 at 15:30 Vancomycin HCl 2 gm/Sodium Chloride 500 ml @ 250 mls/hr Q12H IV Last administered on 09/29/18 04:20; Start 09/27/18 at 16:00 Lisinopril (Prinivil) 20 mg DAILY PO Last administered on 09/29/18 08:42; Start 09/27/18 at 16:00 Hydrochlorothiazide (Hydrodiuril) 25 mg DAILY PO Last administered on 08:42; Start 09/27/18 at 16:00 Heparin Sodium (Porcine) (Heparin Sodium) 5,000 unit Q8HRS SQ ; Start 09/27/18 at 16:00 Vancomycin HCl (Vancomycin Trough Level) 1 each 1X ONCE MC Last administered on 09/29/18 03:30; Start 09/29/18 at 03:30; Stop 09/29/18 at 03:31; Status DC Lactobacillus Rhamnosus (Culturelle) 1 cap BID PO Last administered on 08:42; Start 09/28/18 at 21:00 Nicotine (Nicoderm Cq 14mg) 1 patch PRN DAILY PRN TD SMOKING CESSATION Last administered on 09/29/18 10:03; Start 09/28/18 at 18:30 Alprazolam (Xanax) 0.5 mg PRN Q12HR PRN PO ANXIETY / AGITATION; Start 09/28/18 at 19:15 Active Scripts Active Reported Alprazolam 1 Mg Tablet 1 Tab PO DAILY(AT BEDTIME) Lisinopril-Hctz 20-25 Mg Tab (Lisinopril/Hydrochlorothiazide) 1 Each Tablet 1 Tab PO DAILY Vitals/I & O Vital Sign - Last 24 Hours 09/28/18 09/28/18 09/28/18 09/28/18 15:00 19:00 20:05 23:00 Temp 98.0 98.4 99.3 98.0 98.4 99.3 Pulse 67 82 90 Resp 18 16 16 B/P (MAP) 110/76 (87) 127/74 (91) 140/83 (102) Pulse Ox 96 96 94 O2 Delivery Room Air Room Air Room Air Room Air 09/29/18 09/29/18 09/29/18 09/29/18 02:18 03:00 03:08 07:00 Temp 98.4 98.1 98.4 98.1 Pulse 79 80 Resp 16 18 16 18 B/P (MAP) 116/61 (79) 124/71 (88) Pulse Ox 95 94 O2 Delivery Room Air Room Air Room Air 09/29/18 09/29/18 09/29/18 09/29/18 08:00 08:42 08:46 09:46 Pulse 80 B/P (MAP) 124/71 O2 Delivery Room Air Room Air Room Air 09/29/18 11:00 Temp 97.9 97.9 Pulse 81 Resp 16 B/P (MAP) 131/80 (97) Pulse Ox 97 O2 Delivery Room Air Intake and Output 09/28/18 09/28/18 09/29/18 15:00 23:00 07:00 Intake Total 600 ml 660 ml 600 ml Balance 600 ml 660 ml 600 ml MAURILIO BEY MD Sep 29, 2018 12:01
--- NOTE | 2018-09-29 14:26 | PDOC ---
Infectious Disease Note Vital Sign Vital Signs Vital Signs Date Time Temp Pulse Resp B/P (MAP) Pulse Ox O2 Delivery O2 Flow Rate FiO2 09/29/18 11:00 97.9 81 16 131/80 (97) 97 Room Air 97.9 Labs Lab Laboratory Tests Test 09/29/18 03:30 White Blood Count 5.9 x10^3/uL (4.0-11.0) Red Blood Count 3.85 x10^6/uL (3.50-5.40) Hemoglobin 12.8 g/dL (12.0-15.5) Hematocrit 38.0 % (36.0-47.0) Mean Corpuscular Volume 99 fL (79-100) Mean Corpuscular Hemoglobin 33 pg (25-35) Mean Corpuscular Hemoglobin Concent 34 g/dL (31-37) Red Cell Distribution Width 12.9 % (11.5-14.5) Platelet Count 240 x10^3/uL (140-400) Neutrophils (%) (Auto) 51 % (31-73) Lymphocytes (%) (Auto) 35 % (24-48) Monocytes (%) (Auto) 11 % (0-9) Eosinophils (%) (Auto) 2 % (0-3) Basophils (%) (Auto) 1 % (0-3) Neutrophils # (Auto) 3.0 x10^3uL (1.8-7.7) Lymphocytes # (Auto) 2.1 x10^3/uL (1.0-4.8) Monocytes # (Auto) 0.7 x10^3/uL (0.0-1.1) Eosinophils # (Auto) 0.1 x10^3/uL (0.0-0.7) Basophils # (Auto) 0.0 x10^3/uL (0.0-0.2) Sodium Level 140 mmol/L (136-145) Potassium Level 3.8 mmol/L (3.5-5.1) Chloride Level 106 mmol/L (98-107) Carbon Dioxide Level 26 mmol/L (21-32) Anion Gap 8 (6-14) Blood Urea Nitrogen 12 mg/dL (7-20) Creatinine 0.7 mg/dL (0.6-1.0) Estimated GFR (Cockcroft-Gault) 86.2 Glucose Level 116 mg/dL (70-99) Calcium Level 8.5 mg/dL (8.5-10.1) Vancomycin Level Trough 14.0 mcg/mL (10.0-20.0) Vancomycin Last Dose Date Vancomycin Last Dose Time Micro BLOOD CULTURE Final GRAM POSITIVE COCCI IN CLUSTERS, SUGGESTIVE OF STAPH, IN 1 OF 2 BOTTLES, ONE SET DRAWN Objective Assessment Bacteremia with GPC suggestive of staph from 09/27 (1 of 2 bottles) Cellulitis and abscess LLE s/p bedside I and D in ER 09/26. no cultures done HTN Anxiety Morbid obesity w/ BMI 45 Plan Plan of Care vanc and cefepime Trough 14.0 Awaiting GPC ID/susceptibilities Monitor WBC/temp and renal function closely Local wound care D/w nursing Thank you [id number] D/w Attending Co-Sign Attending Co-Sign The patient was seen and interviewed as well as examined at the bedside. The chart was reviewed. The case was discussed. Agree with the plan of care. CONNIE VANCE APRN Sep 29, 2018 14:26 ALICE MONTILLA MD Sep 29, 2018 15:32
[2018-09-29 15:00] VITALS: BP 125/74
[2018-09-29 19:00] VITALS: BP 122/63
[2018-09-29 22:44] VITALS: BP 128/73
[2018-09-30 03:00] VITALS: BP 120/77
[2018-09-30] MEDS: VANCOMYCIN 2 GM in IV NORMAL SALINE 500ML BAG 500 ML IV SCH ×2 (03:39→17:02)
[2018-09-30] MEDS: HEPARIN for SUB-Q USE 5,000 UNIT/ML VIAL. SQ SCH ×3 (04:02→21:46)
[2018-09-30 05:19] LABS: BASO % 1 % (0-3); EOS # 0.2 x10^3/uL (0.0-0.7); EOS % 4 % (0-3); HEMATOCRIT 36.5 % (36.0-47.0); HEMOGLOBIN 12.6 g/dL (12.0-15.5); LYMPH # 1.8 x10^3/uL (1.0-4.8); LYMPH % 35 % (24-48); MEAN CORPUSCULAR HEMOGLOBIN 34 pg (25-35); MEAN CORPUSCULAR HGB CONC 34 g/dL (31-37); MEAN CORPUSCULAR VOLUME 99 fL (79-100); MONO # 0.6 x10^3/uL (0.0-1.1); MONO % 11 % (0-9); NEUT # 2.6 x10^3uL (1.8-7.7); NEUT % 50 % (31-73); PLATELET COUNT 268 x10^3/uL (140-400); RED CELL DISTRIBUTION WIDTH 12.9 % (11.5-14.5); WHITE BLOOD COUNT 5.2 x10^3/uL (4.0-11.0)
[2018-09-30 05:50] LABS: CALCIUM 8.7 mg/dL (8.5-10.1); CREATININE 0.7 mg/dL (0.6-1.0); GFR 86.2; POTASSIUM 4.8 mmol/L (3.5-5.1)
[2018-09-30] MEDS: CEFEPIME HCL IV Push 1 GM VIAL. IVP SCH ×3 (05:51→21:46)
[2018-09-30] MEDS: HYDROcodone/APAP 5/325MG 1 TAB TABLET PO PRN ×3 (06:03→18:46)
[2018-09-30 07:00] VITALS: BP 129/77
[2018-09-30] MEDS: hydroCHLOROthiazide 25 MG TABLET PO SCH (09:47)
[2018-09-30] MEDS: LACTOBACILLUS RHAMNOSUS GG 1 CAPSULE. PO SCH ×2 (09:48→21:10)
[2018-09-30] MEDS: LISINOPRIL 20 MG TABLET PO SCH (09:48)
[2018-09-30] MEDS: NICOTINE 14MG PATCH. TD PRN (09:52)
[2018-09-30] MEDS: VANCOMYCIN PER PHARMACY MC PRN (10:35)
[2018-09-30 11:00] VITALS: BP 140/77
--- NOTE | 2018-09-30 12:31 | CONS ---
DATE OF CONSULTATION: 09/29/2018 Aaron Mcdaniel, nurse practitioner, dictating for Dr. Alice Montilla, Infectious Disease. REFERRING PHYSICIAN: Dr. Diaz. REASON FOR CONSULTATION: Leg wounds. HISTORY OF PRESENT ILLNESS: The patient is a 58-year-old female who about 3 days ago noticed a bump on her posterior left leg. She says over the course of a few hours, the area became increasingly red, swollen and tender. She denies fevers, chills, sweats or body aches. An ultrasound showed no evidence of DVT, but did show hypoechoic fluid collection at the calf subcutaneous tissues suggestive of a small abscess. She underwent a bedside I and D in the ER. No cultures were sent. She was dosed with vancomycin and cefepime. Since admission, the patient says the redness and swelling have improved. She has been up walking the halls. She remains afebrile. She says her is currently in the hospital with skin infections as well. She is concerned that she may have contacted something with him at home. Denies nausea, vomiting or diarrhea. Denies shortness of air, cough or chest discomfort. Denies dysuria, frequency or urgency. Denies previous history of skin infections. PAST MEDICAL HISTORY: Hypertension and anxiety. PAST SURGICAL HISTORY: Tonsillectomy and tubal ligation. SOCIAL HISTORY: The patient is and lives at home. Smoker. FAMILY HISTORY: Noncontributory. ALLERGIES: No known drug allergies. MEDICATIONS: Vancomycin, cefepime, Xanax, hydrochlorothiazide, Lortab, probiotics, lisinopril, NicoDerm. REVIEW OF SYSTEMS: Per HPI, otherwise all other review of systems are negative. PHYSICAL EXAMINATION: VITAL SIGNS: Temperature is 97.9, blood pressure 131/80, heart rate 81, respiratory rate 16, pulse oximetry is 97% on room air. BMI of 45. GENERAL: The patient is propped up in bed, alert, in no apparent distress. HEENT: Pupils equally round. Normal conjunctivae. Oral cavity, pharynx pink and moist. NECK: Supple. LUNGS: Clear to auscultation. HEART: S1 and S2. No murmurs appreciated. ABDOMEN: Obese, soft and nontender with bowel sounds present. EXTREMITIES: Unremarkable except left lower leg is edematous. She has a wound on the posterior calf with surrounding redness, induration and is tender. SKIN: Warm without rash. NEUROLOGIC: Alert and oriented x 3. LABORATORY DATA: Today's WBC 5.9 and 9.9 on admission, hemoglobin 12.8, platelets 240,000. Sed rate 27. Electrolytes are unremarkable. Creatinine 0.7, BUN 12, glucose 116. CRP 32.3. Vancomycin trough 14.0. Ultrasound per HPI. Tibia/fibula x-ray showed no evidence of acute osseous abnormality. Blood cultures show gram-positive cocci in clusters suggestive of staph in 1 of 2 bottles. ASSESSMENT: 1. Bacteremia with gram-positive cocci suggestive of Staph from 09/27/2018, one of two bottles. 2. Cellulitis and abscess of left lower extremity, status post bedside incision and drainage in the ER on 09/26. 3. Hypertension. 4. Anxiety. 5. Morbid obesity with a BMI of 45. PLAN: Continue the vancomycin and cefepime as she is showing improvement. Awaiting GPC, identification and susceptibilities. Continue to monitor WBC count, temperature and renal function closely. Local wound care. Discussed with nursing. Thank you, Dr. Diaz for asking us to participate in this patient's care. Should you have further questions or concerns, please call. The patient was seen and examined and plan of care implemented by Dr. Alice Montilla. ALICE MONTILLA MD DR: JAYSHREE/hollie JOB#: [id number] / [id number]
--- NOTE | 2018-09-30 12:45 | PDOC ---
Infectious Disease Note Subjective Subjective Feels better. Less swelling No F/C/S/N/V/D/SOA/Rash ROS ROS o/w - neg Vital Sign Vital Signs Vital Signs Date Time Temp Pulse Resp B/P (MAP) Pulse Ox O2 Delivery O2 Flow Rate FiO2 09/30/18 11:15 20 93 Room Air 09/30/18 11:00 98.5 67 140/77 (98) 98.5 Physical Exam PHYSICAL EXAM GENERAL: The patient is propped up in bed, alert, in no apparent distress. HEENT: Pupils equally round. Normal conjunctivae. Oral cavity, pharynx pink and moist. NECK: Supple. LUNGS: Clear to auscultation. HEART: S1 and S2. No murmurs appreciated. ABDOMEN: Obese, soft and nontender with bowel sounds present. EXTREMITIES: Unremarkable except left lower leg is trace edematous. She has a wound on the posterior calf with surrounding redness, induration and is tender but less today. SKIN: Warm without rash. NEUROLOGIC: Alert and oriented x 3. Labs Lab Laboratory Tests Test 09/30/18 04:35 White Blood Count 5.2 x10^3/uL (4.0-11.0) Red Blood Count 3.70 x10^6/uL (3.50-5.40) Hemoglobin 12.6 g/dL (12.0-15.5) Hematocrit 36.5 % (36.0-47.0) Mean Corpuscular Volume 99 fL (79-100) Mean Corpuscular Hemoglobin 34 pg (25-35) Mean Corpuscular Hemoglobin Concent 34 g/dL (31-37) Red Cell Distribution Width 12.9 % (11.5-14.5) Platelet Count 268 x10^3/uL (140-400) Neutrophils (%) (Auto) 50 % (31-73) Lymphocytes (%) (Auto) 35 % (24-48) Monocytes (%) (Auto) 11 % (0-9) Eosinophils (%) (Auto) 4 % (0-3) Basophils (%) (Auto) 1 % (0-3) Neutrophils # (Auto) 2.6 x10^3uL (1.8-7.7) Lymphocytes # (Auto) 1.8 x10^3/uL (1.0-4.8) Monocytes # (Auto) 0.6 x10^3/uL (0.0-1.1) Eosinophils # (Auto) 0.2 x10^3/uL (0.0-0.7) Basophils # (Auto) 0.0 x10^3/uL (0.0-0.2) Erythrocyte Sedimentation Rate 15 (0-25) Sodium Level 140 mmol/L (136-145) Potassium Level 4.8 mmol/L (3.5-5.1) Chloride Level 105 mmol/L (98-107) Carbon Dioxide Level 28 mmol/L (21-32) Anion Gap 7 (6-14) Blood Urea Nitrogen 17 mg/dL (7-20) Creatinine 0.7 mg/dL (0.6-1.0) Estimated GFR (Cockcroft-Gault) 86.2 Glucose Level 105 mg/dL (70-99) Calcium Level 8.7 mg/dL (8.5-10.1) Procalcitonin < 0.10 ng/mL (0.00-0.10) Micro Microbiology 09/27/18 Blood Culture - Final, Complete Objective Assessment Bacteremia with GPC suggestive of staph from 09/27 (1 of 2 bottles) Cellulitis and abscess LLE s/p bedside I and D in ER 09/26. no cultures done HTN Anxiety Morbid obesity w/ BMI 45 Plan Plan of Care Cont vanc and cefepime Trough 14.0 Awaiting GPC ID/susceptibilities Monitor WBC/temp and renal function closely Local wound care D/w ALICE Alba MD Sep 30, 2018 12:45
--- NOTE | 2018-09-30 14:31 | PDOC ---
PROGRESS NOTES Chief Complaint Chief Complaint CC: Lower Extremity swelling and pain - Cellulitis History of Present Illness History of Present Illness Pt seen and examined this morning, pt was in husbands room which is next door to hers. Pt states the pain and swelling are improving, notes her leg has been itching and asks about being d/c today Denies F/C, N/V Vitals Vitals Vital Signs Date Time Temp Pulse Resp B/P (MAP) Pulse Ox O2 Delivery O2 Flow Rate FiO2 09/30/18 11:15 20 93 Room Air 09/30/18 11:00 98.5 67 140/77 (98) 98.5 Physical Exam General: Alert, Oriented X3, Cooperative, No acute distress Heart: Regular rate, Normal S1, Normal S2, No murmurs Lungs: Clear, Other (No crackles, wheezes or rales) Abdomen: Normal bowel sounds, Soft, No tenderness, No masses Extremities: No clubbing, No cyanosis, Normal pulses, Other (LE swelling, errythema receding from margin, sligt TTP and inudration) Skin: No breakdown, Other (dressing inplace C/D/I) Labs LABS Laboratory Tests Test 09/30/18 04:35 White Blood Count 5.2 x10^3/uL (4.0-11.0) Red Blood Count 3.70 x10^6/uL (3.50-5.40) Hemoglobin 12.6 g/dL (12.0-15.5) Hematocrit 36.5 % (36.0-47.0) Mean Corpuscular Volume 99 fL (79-100) Mean Corpuscular Hemoglobin 34 pg (25-35) Mean Corpuscular Hemoglobin Concent 34 g/dL (31-37) Red Cell Distribution Width 12.9 % (11.5-14.5) Platelet Count 268 x10^3/uL (140-400) Neutrophils (%) (Auto) 50 % (31-73) Lymphocytes (%) (Auto) 35 % (24-48) Monocytes (%) (Auto) 11 % (0-9) Eosinophils (%) (Auto) 4 % (0-3) Basophils (%) (Auto) 1 % (0-3) Neutrophils # (Auto) 2.6 x10^3uL (1.8-7.7) Lymphocytes # (Auto) 1.8 x10^3/uL (1.0-4.8) Monocytes # (Auto) 0.6 x10^3/uL (0.0-1.1) Eosinophils # (Auto) 0.2 x10^3/uL (0.0-0.7) Basophils # (Auto) 0.0 x10^3/uL (0.0-0.2) Erythrocyte Sedimentation Rate 15 (0-25) Sodium Level 140 mmol/L (136-145) Potassium Level 4.8 mmol/L (3.5-5.1) Chloride Level 105 mmol/L (98-107) Carbon Dioxide Level 28 mmol/L (21-32) Anion Gap 7 (6-14) Blood Urea Nitrogen 17 mg/dL (7-20) Creatinine 0.7 mg/dL (0.6-1.0) Estimated GFR (Cockcroft-Gault) 86.2 Glucose Level 105 mg/dL (70-99) Calcium Level 8.7 mg/dL (8.5-10.1) Procalcitonin < 0.10 ng/mL (0.00-0.10) Review of Systems Review of Systems Admits to itching of her LLE Denies CP/SOA Denies N/V Denies F/C Denies changes in bowel habits Assessment and Plan Assessmemt and Plan Assessment: LE Cellulitis- Improving: afebrile, erythema receding HTN Anxiety u/s (-) for DVT I/D in ER Blood Cx revealing staph 1/2 bottles, likely contaminant Plan: D/c when okay with subspecialists ID: Vancomycin and cefepime, dosing per Pharmacy, Trough 14 Awaiting culture sensitivities, appreciate sub-specialist recommendations Local Home Meds Heparin offered for DVT ppx, pt respectfully declined and states she has been up out of bed and is walking around routinely. Recheck labs in AM PT/OT orders Comment Review of Relevant I have reviewed the following items kavon (where applicable) has been applied. Labs Laboratory Tests Test 09/29/18 03:30 09/30/18 04:35 White Blood Count 5.9 x10^3/uL (4.0-11.0) 5.2 x10^3/uL (4.0-11.0) Red Blood Count 3.85 x10^6/uL (3.50-5.40) 3.70 x10^6/uL (3.50-5.40) Hemoglobin 12.8 g/dL (12.0-15.5) 12.6 g/dL (12.0-15.5) Hematocrit 38.0 % (36.0-47.0) 36.5 % (36.0-47.0) Mean Corpuscular Volume 99 fL (79-100) 99 fL (79-100) Mean Corpuscular Hemoglobin 33 pg (25-35) 34 pg (25-35) Mean Corpuscular Hemoglobin Concent 34 g/dL (31-37) 34 g/dL (31-37) Red Cell Distribution Width 12.9 % (11.5-14.5) 12.9 % (11.5-14.5) Platelet Count 240 x10^3/uL (140-400) 268 x10^3/uL (140-400) Neutrophils (%) (Auto) 51 % (31-73) 50 % (31-73) Lymphocytes (%) (Auto) 35 % (24-48) 35 % (24-48) Monocytes (%) (Auto) 11 % (0-9) 11 % (0-9) Eosinophils (%) (Auto) 2 % (0-3) 4 % (0-3) Basophils (%) (Auto) 1 % (0-3) 1 % (0-3) Neutrophils # (Auto) 3.0 x10^3uL (1.8-7.7) 2.6 x10^3uL (1.8-7.7) Lymphocytes # (Auto) 2.1 x10^3/uL (1.0-4.8) 1.8 x10^3/uL (1.0-4.8) Monocytes # (Auto) 0.7 x10^3/uL (0.0-1.1) 0.6 x10^3/uL (0.0-1.1) Eosinophils # (Auto) 0.1 x10^3/uL (0.0-0.7) 0.2 x10^3/uL (0.0-0.7) Basophils # (Auto) 0.0 x10^3/uL (0.0-0.2) 0.0 x10^3/uL (0.0-0.2) Sodium Level 140 mmol/L (136-145) 140 mmol/L (136-145) Potassium Level 3.8 mmol/L (3.5-5.1) 4.8 mmol/L (3.5-5.1) Chloride Level 106 mmol/L (98-107) 105 mmol/L (98-107) Carbon Dioxide Level 26 mmol/L (21-32) 28 mmol/L (21-32) Anion Gap 8 (6-14) 7 (6-14) Blood Urea Nitrogen 12 mg/dL (7-20) 17 mg/dL (7-20) Creatinine 0.7 mg/dL (0.6-1.0) 0.7 mg/dL (0.6-1.0) Estimated GFR (Cockcroft-Gault) 86.2 86.2 Glucose Level 116 mg/dL (70-99) 105 mg/dL (70-99) Calcium Level 8.5 mg/dL (8.5-10.1) 8.7 mg/dL (8.5-10.1) Vancomycin Level Trough 14.0 mcg/mL (10.0-20.0) Vancomycin Last Dose Date Vancomycin Last Dose Time Erythrocyte Sedimentation Rate 15 (0-25) Procalcitonin < 0.10 ng/mL (0.00-0.10) Laboratory Tests Test 09/30/18 04:35 White Blood Count 5.2 x10^3/uL (4.0-11.0) Red Blood Count 3.70 x10^6/uL (3.50-5.40) Hemoglobin 12.6 g/dL (12.0-15.5) Hematocrit 36.5 % (36.0-47.0) Mean Corpuscular Volume 99 fL (79-100) Mean Corpuscular Hemoglobin 34 pg (25-35) Mean Corpuscular Hemoglobin Concent 34 g/dL (31-37) Red Cell Distribution Width 12.9 % (11.5-14.5) Platelet Count 268 x10^3/uL (140-400) Neutrophils (%) (Auto) 50 % (31-73) Lymphocytes (%) (Auto) 35 % (24-48) Monocytes (%) (Auto) 11 % (0-9) Eosinophils (%) (Auto) 4 % (0-3) Basophils (%) (Auto) 1 % (0-3) Neutrophils # (Auto) 2.6 x10^3uL (1.8-7.7) Lymphocytes # (Auto) 1.8 x10^3/uL (1.0-4.8) Monocytes # (Auto) 0.6 x10^3/uL (0.0-1.1) Eosinophils # (Auto) 0.2 x10^3/uL (0.0-0.7) Basophils # (Auto) 0.0 x10^3/uL (0.0-0.2) Erythrocyte Sedimentation Rate 15 (0-25) Sodium Level 140 mmol/L (136-145) Potassium Level 4.8 mmol/L (3.5-5.1) Chloride Level 105 mmol/L (98-107) Carbon Dioxide Level 28 mmol/L (21-32) Anion Gap 7 (6-14) Blood Urea Nitrogen 17 mg/dL (7-20) Creatinine 0.7 mg/dL (0.6-1.0) Estimated GFR (Cockcroft-Gault) 86.2 Glucose Level 105 mg/dL (70-99) Calcium Level 8.7 mg/dL (8.5-10.1) Procalcitonin < 0.10 ng/mL (0.00-0.10) Microbiology 09/27/18 Blood Culture - Final, Complete Medications Current Medications Acetaminophen/ Hydrocodone Bitart (Lortab 5/325) 1 tab 1X ONCE PO Last administered on 09/26/18at 22:42; Start 09/26/18 at 22:00; Stop 09/26/18 at 22:19 ; Status DC Lidocaine/Sodium Bicarbonate (Buffered Lidocaine 1%) 3 ml 1X ONCE INJ Last administered on 09/27/18at 00:15; Start 09/27/18 at 00:15; Stop 09/27/18 at 00:17 ; Status DC Piperacillin Sod/ Tazobactam Sod 3.375 gm/Sodium Chloride 50 ml @ 100 mls/hr 1X ONCE IV Last administered on 09/27/18at 01:18; Start 09/27/18 at 01:00; Stop 09/27/18 at 01:29; Status DC Vancomycin HCl 1.25 gm/Sodium Chloride 250 ml @ 166.667 mls/hr 1X ONCE IV ; Start 09/27/18 at 00:45; Stop 09/27/18 at 00:50; Status DC Vancomycin HCl 2 gm/Sodium Chloride 500 ml @ 250 mls/hr 1X ONCE IV Last administered on 09/27/18at 02:20; Start 09/27/18 at 01:00; Stop 09/27/18 at 02:59 ; Status DC Acetaminophen/ Hydrocodone Bitart (Lortab 5/325) 1 tab PRN Q4HRS PRN PO PAIN Last administered on 09/30/18 11:15; Start 09/27/18 at 03:00 Vancomycin HCl (Vanco Per Pharmacy) 1 each PRN DAILY PRN MC SEE COMMENTS Last administered on 09/30/18 10:35; Start 09/27/18 at 15:30 Cefepime HCl (Maxipime) 1 gm Q8HRS IVP Last administered on 09/30/18 13:47; Start 09/27/18 at 15:30 Vancomycin HCl 2 gm/Sodium Chloride 500 ml @ 250 mls/hr Q12H IV Last administered on 09/30/18 03:39; Start 09/27/18 at 16:00 Lisinopril (Prinivil) 20 mg DAILY PO Last administered on 09/30/18 09:48; Start 09/27/18 at 16:00 Hydrochlorothiazide (Hydrodiuril) 25 mg DAILY PO Last administered on 09:47; Start 09/27/18 at 16:00 Heparin Sodium (Porcine) (Heparin Sodium) 5,000 unit Q8HRS SQ ; Start 09/27/18 at 16:00 Vancomycin HCl (Vancomycin Trough Level) 1 each 1X ONCE MC Last administered on 09/29/18 03:30; Start 09/29/18 at 03:30; Stop 09/29/18 at 03:31; Status DC Lactobacillus Rhamnosus (Culturelle) 1 cap BID PO Last administered on 09:48; Start 09/28/18 at 21:00 Nicotine (Nicoderm Cq 14mg) 1 patch PRN DAILY PRN TD SMOKING CESSATION Last administered on 09/30/18 09:52; Start 09/28/18 at 18:30 Alprazolam (Xanax) 0.5 mg PRN Q12HR PRN PO ANXIETY / AGITATION; Start 09/28/18 at 19:15 Active Scripts Active Reported Alprazolam 1 Mg Tablet 1 Tab PO DAILY(AT BEDTIME) Lisinopril-Hctz 20-25 Mg Tab (Lisinopril/Hydrochlorothiazide) 1 Each Tablet 1 Tab PO DAILY Vitals/I & O Vital Sign - Last 24 Hours 09/29/18 09/29/18 09/29/18 09/29/18 15:00 15:52 19:00 20:00 Temp 98.5 97.9 98.5 97.9 Pulse 80 77 Resp 18 18 B/P (MAP) 125/74 (91) 122/63 (82) Pulse Ox 97 96 O2 Delivery Room Air Room Air Room Air Room Air 09/29/18 09/29/18 09/29/18 09/30/18 21:11 22:17 22:44 03:00 Temp 97.8 98.3 97.8 98.3 Pulse 82 72 Resp 18 18 B/P (MAP) 128/73 (91) 120/77 (91) Pulse Ox 96 96 99 94 O2 Delivery Room Air Room Air Room Air Room Air 09/30/18 09/30/18 09/30/18 09/30/18 06:03 07:00 09:48 11:00 Temp 98.3 98.5 98.3 98.5 Pulse 85 72 67 Resp 20 20 B/P (MAP) 129/77 (94) 120/77 140/77 (98) Pulse Ox 94 98 96 O2 Delivery Room Air Room Air Room Air 09/30/18 11:15 Resp 20 Pulse Ox 93 O2 Delivery Room Air Intake and Output 09/29/18 09/29/18 09/30/18 15:00 23:00 07:00 Intake Total 360 ml 180 ml 980 ml Balance 360 ml 180 ml 980 ml LIZBETH GOYAL III DO Sep 30, 2018 14:31
[2018-09-30 15:00] VITALS: BP 143/83
[2018-09-30 19:00] VITALS: BP 140/85
[2018-09-30 22:45] VITALS: BP 145/88
[2018-10-01 02:59] VITALS: BP 110/68
[2018-10-01] MEDS: VANCOMYCIN 2 GM in IV NORMAL SALINE 500ML BAG 500 ML IV SCH (03:59)
[2018-10-01] MEDS: HYDROcodone/APAP 5/325MG 1 TAB TABLET PO PRN ×3 (04:07→18:29)
[2018-10-01] MEDS: CEFEPIME HCL IV Push 1 GM VIAL. IVP SCH (06:00)
[2018-10-01] MEDS: HEPARIN for SUB-Q USE 5,000 UNIT/ML VIAL. SQ SCH ×3 (06:00→20:37)
[2018-10-01 07:00] VITALS: BP 144/90
[2018-10-01 09:49] LABS: BASO % 1 % (0-3); EOS # 0.1 x10^3/uL (0.0-0.7); EOS % 3 % (0-3); HEMATOCRIT 38.9 % (36.0-47.0); LYMPH # 1.8 x10^3/uL (1.0-4.8); LYMPH % 37 % (24-48); MEAN CORPUSCULAR HEMOGLOBIN 33 pg (25-35); MEAN CORPUSCULAR HGB CONC 33 g/dL (31-37); MEAN CORPUSCULAR VOLUME 99 fL (79-100); MONO # 0.4 x10^3/uL (0.0-1.1); MONO % 9 % (0-9); NEUT # 2.6 x10^3uL (1.8-7.7); NEUT % 51 % (31-73); PLATELET COUNT 286 x10^3/uL (140-400); RED BLOOD COUNT 3.92 x10^6/uL (3.50-5.40); RED CELL DISTRIBUTION WIDTH 13.1 % (11.5-14.5)
--- NOTE | 2018-10-01 09:56 | PDOC ---
PROGRESS NOTES Chief Complaint Chief Complaint acute Lower Extremity swelling and pain - Cellulitis poss bacteremia obesity, BMI 45 History of Present Illness History of Present Illness Pt seen and examined pain better, still induration at site of initial wound, eval with wound care team Pt states the pain and swelling are improving, notes her leg has been itching and asks about being d/c today Denies F/C, N/V Vitals Vitals Vital Signs Date Time Temp Pulse Resp B/P (MAP) Pulse Ox O2 Delivery O2 Flow Rate FiO2 10/01/18 07:00 97.7 72 144/90 (108) 99 Room Air 97.7 10/01/18 02:59 18 Physical Exam General: Alert, Oriented X3, Cooperative, No acute distress Heart: Regular rate, Normal S1, Normal S2, No murmurs Lungs: Clear, Other (No crackles, wheezes or rales) Abdomen: Normal bowel sounds, Soft, No tenderness, No masses Extremities: No clubbing, No cyanosis, Normal pulses, Other (LE swelling, errythema receding from margin, sligt TTP and inudration) Skin: No breakdown, Other (dressing inplace C/D/I) Labs LABS Laboratory Tests Test 10/01/18 09:10 White Blood Count 5.0 x10^3/uL (4.0-11.0) Red Blood Count 3.92 x10^6/uL (3.50-5.40) Hemoglobin 13.0 g/dL (12.0-15.5) Hematocrit 38.9 % (36.0-47.0) Mean Corpuscular Volume 99 fL (79-100) Mean Corpuscular Hemoglobin 33 pg (25-35) Mean Corpuscular Hemoglobin Concent 33 g/dL (31-37) Red Cell Distribution Width 13.1 % (11.5-14.5) Platelet Count 286 x10^3/uL (140-400) Neutrophils (%) (Auto) 51 % (31-73) Lymphocytes (%) (Auto) 37 % (24-48) Monocytes (%) (Auto) 9 % (0-9) Eosinophils (%) (Auto) 3 % (0-3) Basophils (%) (Auto) 1 % (0-3) Neutrophils # (Auto) 2.6 x10^3uL (1.8-7.7) Lymphocytes # (Auto) 1.8 x10^3/uL (1.0-4.8) Monocytes # (Auto) 0.4 x10^3/uL (0.0-1.1) Eosinophils # (Auto) 0.1 x10^3/uL (0.0-0.7) Basophils # (Auto) 0.0 x10^3/uL (0.0-0.2) Review of Systems Review of Systems no n.v.d Comment Review of Relevant I have reviewed the following items kavon (where applicable) has been applied. Labs Laboratory Tests Test 09/30/18 04:35 10/01/18 09:10 White Blood Count 5.2 x10^3/uL (4.0-11.0) 5.0 x10^3/uL (4.0-11.0) Red Blood Count 3.70 x10^6/uL (3.50-5.40) 3.92 x10^6/uL (3.50-5.40) Hemoglobin 12.6 g/dL (12.0-15.5) 13.0 g/dL (12.0-15.5) Hematocrit 36.5 % (36.0-47.0) 38.9 % (36.0-47.0) Mean Corpuscular Volume 99 fL (79-100) 99 fL (79-100) Mean Corpuscular Hemoglobin 34 pg (25-35) 33 pg (25-35) Mean Corpuscular Hemoglobin Concent 34 g/dL (31-37) 33 g/dL (31-37) Red Cell Distribution Width 12.9 % (11.5-14.5) 13.1 % (11.5-14.5) Platelet Count 268 x10^3/uL (140-400) 286 x10^3/uL (140-400) Neutrophils (%) (Auto) 50 % (31-73) 51 % (31-73) Lymphocytes (%) (Auto) 35 % (24-48) 37 % (24-48) Monocytes (%) (Auto) 11 % (0-9) 9 % (0-9) Eosinophils (%) (Auto) 4 % (0-3) 3 % (0-3) Basophils (%) (Auto) 1 % (0-3) 1 % (0-3) Neutrophils # (Auto) 2.6 x10^3uL (1.8-7.7) 2.6 x10^3uL (1.8-7.7) Lymphocytes # (Auto) 1.8 x10^3/uL (1.0-4.8) 1.8 x10^3/uL (1.0-4.8) Monocytes # (Auto) 0.6 x10^3/uL (0.0-1.1) 0.4 x10^3/uL (0.0-1.1) Eosinophils # (Auto) 0.2 x10^3/uL (0.0-0.7) 0.1 x10^3/uL (0.0-0.7) Basophils # (Auto) 0.0 x10^3/uL (0.0-0.2) 0.0 x10^3/uL (0.0-0.2) Erythrocyte Sedimentation Rate 15 (0-25) Sodium Level 140 mmol/L (136-145) Potassium Level 4.8 mmol/L (3.5-5.1) Chloride Level 105 mmol/L (98-107) Carbon Dioxide Level 28 mmol/L (21-32) Anion Gap 7 (6-14) Blood Urea Nitrogen 17 mg/dL (7-20) Creatinine 0.7 mg/dL (0.6-1.0) Estimated GFR (Cockcroft-Gault) 86.2 Glucose Level 105 mg/dL (70-99) Calcium Level 8.7 mg/dL (8.5-10.1) Procalcitonin < 0.10 ng/mL (0.00-0.10) Laboratory Tests Test 10/01/18 09:10 White Blood Count 5.0 x10^3/uL (4.0-11.0) Red Blood Count 3.92 x10^6/uL (3.50-5.40) Hemoglobin 13.0 g/dL (12.0-15.5) Hematocrit 38.9 % (36.0-47.0) Mean Corpuscular Volume 99 fL (79-100) Mean Corpuscular Hemoglobin 33 pg (25-35) Mean Corpuscular Hemoglobin Concent 33 g/dL (31-37) Red Cell Distribution Width 13.1 % (11.5-14.5) Platelet Count 286 x10^3/uL (140-400) Neutrophils (%) (Auto) 51 % (31-73) Lymphocytes (%) (Auto) 37 % (24-48) Monocytes (%) (Auto) 9 % (0-9) Eosinophils (%) (Auto) 3 % (0-3) Basophils (%) (Auto) 1 % (0-3) Neutrophils # (Auto) 2.6 x10^3uL (1.8-7.7) Lymphocytes # (Auto) 1.8 x10^3/uL (1.0-4.8) Monocytes # (Auto) 0.4 x10^3/uL (0.0-1.1) Eosinophils # (Auto) 0.1 x10^3/uL (0.0-0.7) Basophils # (Auto) 0.0 x10^3/uL (0.0-0.2) Microbiology 09/27/18 Blood Culture - Final, Complete Medications Current Medications Acetaminophen/ Hydrocodone Bitart (Lortab 5/325) 1 tab 1X ONCE PO Last administered on 09/26/18at 22:42; Start 09/26/18 at 22:00; Stop 09/26/18 at 22:19 ; Status DC Lidocaine/Sodium Bicarbonate (Buffered Lidocaine 1%) 3 ml 1X ONCE INJ Last administered on 09/27/18at 00:15; Start 09/27/18 at 00:15; Stop 09/27/18 at 00:17 ; Status DC Piperacillin Sod/ Tazobactam Sod 3.375 gm/Sodium Chloride 50 ml @ 100 mls/hr 1X ONCE IV Last administered on 09/27/18at 01:18; Start 09/27/18 at 01:00; Stop 09/27/18 at 01:29; Status DC Vancomycin HCl 1.25 gm/Sodium Chloride 250 ml @ 166.667 mls/hr 1X ONCE IV ; Start 09/27/18 at 00:45; Stop 09/27/18 at 00:50; Status DC Vancomycin HCl 2 gm/Sodium Chloride 500 ml @ 250 mls/hr 1X ONCE IV Last administered on 09/27/18at 02:20; Start 09/27/18 at 01:00; Stop 09/27/18 at 02:59 ; Status DC Acetaminophen/ Hydrocodone Bitart (Lortab 5/325) 1 tab PRN Q4HRS PRN PO PAIN Last administered on 10/01/18 04:07; Start 09/27/18 at 03:00 Vancomycin HCl (Vanco Per Pharmacy) 1 each PRN DAILY PRN MC SEE COMMENTS Last administered on 09/30/18 10:35; Start 09/27/18 at 15:30 Cefepime HCl (Maxipime) 1 gm Q8HRS IVP Last administered on 10/01/18 06:00; Start 09/27/18 at 15:30 Vancomycin HCl 2 gm/Sodium Chloride 500 ml @ 250 mls/hr Q12H IV Last administered on 10/01/18 03:59; Start 09/27/18 at 16:00 Lisinopril (Prinivil) 20 mg DAILY PO Last administered on 09/30/18 09:48; Start 09/27/18 at 16:00 Hydrochlorothiazide (Hydrodiuril) 25 mg DAILY PO Last administered on 09:47; Start 09/27/18 at 16:00 Heparin Sodium (Porcine) (Heparin Sodium) 5,000 unit Q8HRS SQ ; Start 09/27/18 at 16:00 Vancomycin HCl (Vancomycin Trough Level) 1 each 1X ONCE MC Last administered on 09/29/18 03:30; Start 09/29/18 at 03:30; Stop 09/29/18 at 03:31; Status DC Lactobacillus Rhamnosus (Culturelle) 1 cap BID PO Last administered on 21:10; Start 09/28/18 at 21:00 Nicotine (Nicoderm Cq 14mg) 1 patch PRN DAILY PRN TD SMOKING CESSATION Last administered on 09/30/18 09:52; Start 09/28/18 at 18:30 Alprazolam (Xanax) 0.5 mg PRN Q12HR PRN PO ANXIETY / AGITATION; Start 09/28/18 at 19:15 Active Scripts Active Reported Alprazolam 1 Mg Tablet 1 Tab PO DAILY(AT BEDTIME) Lisinopril-Hctz 20-25 Mg Tab (Lisinopril/Hydrochlorothiazide) 1 Each Tablet 1 Tab PO DAILY Vitals/I & O Vital Sign - Last 24 Hours 409/30/18 09/30/18 09/30/18 11:00 11:15 12:20 15:00 Temp 98.5 98.0 98.5 98.0 Pulse 67 84 Resp 20 20 20 16 B/P (MAP) 140/77 (98) 143/83 (103) Pulse Ox 96 93 93 95 O2 Delivery Room Air Room Air Room Air 09/30/18 09/30/18 09/30/18 09/30/18 18:46 19:00 19:45 22:45 Temp 98.2 98.4 98.2 98.4 Pulse 83 86 Resp 18 18 B/P (MAP) 140/85 (103) 145/88 (107) Pulse Ox 93 97 92 O2 Delivery Room Air Room Air Room Air Room Air 10/01/18 10/01/18 10/01/18 10/01/18 02:59 04:07 05:10 07:00 Temp 98.5 97.7 98.5 97.7 Pulse 87 72 Resp 18 B/P (MAP) 110/68 (82) 144/90 (108) Pulse Ox 91 99 O2 Delivery Room Air Room Air Room Air Room Air Intake and Output 09/30/18 09/30/18 10/01/18 14:59 22:59 06:59 Intake Total 1900 ml 1000 ml Output Total 2 ml 1 ml Balance 1898 ml 999 ml MONIK BONE MD Oct 01, 2018 09:56
[2018-10-01] MEDS: hydroCHLOROthiazide 25 MG TABLET PO SCH (10:02)
[2018-10-01] MEDS: LACTOBACILLUS RHAMNOSUS GG 1 CAPSULE. PO SCH ×2 (10:02→20:28)
[2018-10-01] MEDS: LISINOPRIL 20 MG TABLET PO SCH (10:03)
[2018-10-01] MEDS: NICOTINE 14MG PATCH. TD PRN (10:04)
[2018-10-01 10:05] LABS: CALCIUM 9.1 mg/dL (8.5-10.1); CREATININE 0.8 mg/dL (0.6-1.0); GFR 73.9; POTASSIUM 4.4 mmol/L (3.5-5.1)
--- NOTE | 2018-10-01 10:15 | NUR ---
Wound care: Patient seen per wound care consult. See wound assessment. Patient has cellulitis with abscess to left calf. Wound cleansed, assessed, measured, and pictured. Recommendations for Xeroform gauze and foam dressing at this time. Wound is reddened and indurated and patient wound benefit from surgical consult. Dr. Germain at bedside and will order for surgery to see patient. Dressing applied and patient tolerated well. Wound care will follow up with patient tomorrow depending on surgical consult. No other wounds noted upon head to toe assessment. Dressing change instructions left in room. Spoke with RN regarding POC. Will follow up with patient regarding wound care. Call light in reach and bed lowered.
--- NOTE | 2018-10-01 10:49 | PDOC2 ---
JOSE L LOPEZ GENERAL [employer] WORKER 10/01/18 1049: CONSULT Date of Consult Date of Consult DATE: 10/01/18 TIME: 10:45 Reason for Consult Reason for Consult: leg wound Referring Physician Referring Physician: Dr Germain Identification/Chief Complaint Chief Complaint leg wounds Source Source: Chart review, Patient History of Present Illness Reason for Visit: Patient known with similar wound issues Consult now for her -leg cellulitis, it has improved, however she has a wound to left calf that does not appear to be improving, there is some pain to that area On admission did have a small bedside debridement in ER Past Medical History Cardiovascular: HTN Psych: Anxiety Past Surgical History Past Surgical History: No pertinent history Social History <1 pack per day ALCOHOL: none Drugs: None Current Medications Current Medications Current Medications Acetaminophen/ Hydrocodone Bitart (Lortab 5/325) 1 tab 1X ONCE PO Last administered on 09/26/18at 22:42; Start 09/26/18 at 22:00; Stop 09/26/18 at 22:19; Status DC Lidocaine/Sodium Bicarbonate (Buffered Lidocaine 1%) 3 ml 1X ONCE INJ Last administered on 09/27/18at 00:15; Start 09/27/18 at 00:15; Stop 09/27/18 at 00:17; Status DC Piperacillin Sod/ Tazobactam Sod 3.375 gm/Sodium Chloride 50 ml @ 100 mls/hr 1X ONCE IV Last administered on 09/27/18at 01:18; Start 09/27/18 at 01:00; Stop 09/27/18 at 01:29; Status DC Vancomycin HCl 1.25 gm/Sodium Chloride 250 ml @ 166.667 mls/hr 1X ONCE IV ; Start 09/27/18 at 00:45; Stop 09/27/18 at 00:50; Status DC Vancomycin HCl 2 gm/Sodium Chloride 500 ml @ 250 mls/hr 1X ONCE IV Last administered on 09/27/18at 02:20; Start 09/27/18 at 01:00; Stop 09/27/18 at 02:59; Status DC Acetaminophen/ Hydrocodone Bitart (Lortab 5/325) 1 tab PRN Q4HRS PRN PO PAIN Last administered on 10/01/18at 10:03; Start 09/27/18 at 03:00 Vancomycin HCl (Vanco Per Pharmacy) 1 each PRN DAILY PRN MC SEE COMMENTS Last administered on 09/30/18 10:35; Start 09/27/18 at 15:30 Cefepime HCl (Maxipime) 1 gm Q8HRS IVP Last administered on 10/01/18 06:00; Start 09/27/18 at 15:30 Vancomycin HCl 2 gm/Sodium Chloride 500 ml @ 250 mls/hr Q12H IV Last a dministered on 10/01/18 03:59; Start 09/27/18 at 16:00 Lisinopril (Prinivil) 20 mg DAILY PO Last administered on 10/01/18 10:03; Start 09/27/18 at 16:00 Hydrochlorothiazide (Hydrodiuril) 25 mg DAILY PO Last administered on 10/01/18 10:02; Start 09/27/18 at 16:00 Heparin Sodium (Porcine) (Heparin Sodium) 5,000 unit Q8HRS SQ ; Start 09/27/18 at 16:00 Vancomycin HCl (Vancomycin Trough Level) 1 each 1X ONCE MC Last administered on 09/29/18 03:30; Start 09/29/18 at 03:30; Stop 09/29/18 at 03:31; Status DC Lactobacillus Rhamnosus (Culturelle) 1 cap BID PO Last administered on 10/01/18 10:02; Start 09/28/18 at 21:00 Nicotine (Nicoderm Cq 14mg) 1 patch PRN DAILY PRN TD SMOKING CESSATION Last administered on 10/01/18 10:04; Start 09/28/18 at 18:30 Alprazolam (Xanax) 0.5 mg PRN Q12HR PRN PO ANXIETY / AGITATION; Start 09/28/18 at 19:15 Active Scripts Active Reported Alprazolam 1 Mg Tablet 1 Tab PO DAILY(AT BEDTIME) Lisinopril-Hctz 20-25 Mg Tab (Lisinopril/Hydrochlorothiazide) 1 Each Tablet 1 Tab PO DAILY Allergies Allergies: Coded Allergies: No Known Drug Allergies (Unverified , 09/26/18) ROS General: No: Chills, Other (fevers) PSYCHOLOGICAL ROS: No: Anxiety, Depression Eyes: No Blurry vision, No Double vision HEENT: No: Heacaches, Sore Throat Hematological and Lymphatic: No: Bleeding Problems, Blood Clots Respiratory: No: Cough, Shortness of breath Cardiovascular: No Chest Pain, No Palpitations Gastrointestinal: No Nausea, No Vomiting Genitourinary: No Dysuria, No Hematuria Musculoskeletal: No Joint Pain, No Muscle Pain Neurological: No Impaired Coord/balance, No Numbness/Tingling Skin: Yes Other (see hpi) Physical Exam General: Alert, Oriented X3, Cooperative, No acute distress HEENT: PERRLA, Mucous membr. moist/pink Lungs: Clear to auscultation, Normal air movement Heart: Regular rate, Normal S1, Normal S2, No murmurs Abdomen: Soft, No tenderness Extremities: Other (left calf with minimal erythema, there is a wound without necrosis, there is induration, no fluctuance, tender on exam) Neuro: Normal speech, Sensation intact Psych/Mental Status: Mental status NL, Mood NL MUSCULOSKELETAL: No deformity, No swelling Vitals VITALS Vital Signs Date Time Temp Pulse Resp B/P (MAP) Pulse Ox O2 Delivery O2 Flow Rate FiO2 10/01/18 10:03 72 144/90 10/01/18 10:03 Room Air 10/01/18 07:00 97.7 99 97.7 10/01/18 02:59 18 Labs Labs Laboratory Tests Test 09/30/18 04:35 10/01/18 09:10 White Blood Count 5.2 x10^3/uL (4.0-11.0) 5.0 x10^3/uL (4.0-11.0) Red Blood Count 3.70 x10^6/uL (3.50-5.40) 3.92 x10^6/uL (3.50-5.40) Hemoglobin 12.6 g/dL (12.0-15.5) 13.0 g/dL (12.0-15.5) Hematocrit 36.5 % (36.0-47.0) 38.9 % (36.0-47.0) Mean Corpuscular Volume 99 fL (79-100) 99 fL (79-100) Mean Corpuscular Hemoglobin 34 pg (25-35) 33 pg (25-35) Mean Corpuscular Hemoglobin Concent 34 g/dL (31-37) 33 g/dL (31-37) Red Cell Distribution Width 12.9 % (11.5-14.5) 13.1 % (11.5-14.5) Platelet Count 268 x10^3/uL (140-400) 286 x10^3/uL (140-400) Neutrophils (%) (Auto) 50 % (31-73) 51 % (31-73) Lymphocytes (%) (Auto) 35 % (24-48) 37 % (24-48) Monocytes (%) (Auto) 11 % (0-9) 9 % (0-9) Eosinophils (%) (Auto) 4 % (0-3) 3 % (0-3) Basophils (%) (Auto) 1 % (0-3) 1 % (0-3) Neutrophils # (Auto) 2.6 x10^3uL (1.8-7.7) 2.6 x10^3uL (1.8-7.7) Lymphocytes # (Auto) 1.8 x10^3/uL (1.0-4.8) 1.8 x10^3/uL (1.0-4.8) Monocytes # (Auto) 0.6 x10^3/uL (0.0-1.1) 0.4 x10^3/uL (0.0-1.1) Eosinophils # (Auto) 0.2 x10^3/uL (0.0-0.7) 0.1 x10^3/uL (0.0-0.7) Basophils # (Auto) 0.0 x10^3/uL (0.0-0.2) 0.0 x10^3/uL (0.0-0.2) Erythrocyte Sedimentation Rate 15 (0-25) Sodium Level 140 mmol/L (136-145) 139 mmol/L (136-145) Potassium Level 4.8 mmol/L (3.5-5.1) 4.4 mmol/L (3.5-5.1) Chloride Level 105 mmol/L (98-107) 103 mmol/L (98-107) Carbon Dioxide Level 28 mmol/L (21-32) 27 mmol/L (21-32) Anion Gap 7 (6-14) 9 (6-14) Blood Urea Nitrogen 17 mg/dL (7-20) 15 mg/dL (7-20) Creatinine 0.7 mg/dL (0.6-1.0) 0.8 mg/dL (0.6-1.0) Estimated GFR (Cockcroft-Gault) 86.2 73.9 Glucose Level 105 mg/dL (70-99) 113 mg/dL (70-99) Calcium Level 8.7 mg/dL (8.5-10.1) 9.1 mg/dL (8.5-10.1) Procalcitonin < 0.10 ng/mL (0.00-0.10) Laboratory Tests Test 10/01/18 09:10 White Blood Count 5.0 x10^3/uL (4.0-11.0) Red Blood Count 3.92 x10^6/uL (3.50-5.40) Hemoglobin 13.0 g/dL (12.0-15.5) Hematocrit 38.9 % (36.0-47.0) Mean Corpuscular Volume 99 fL (79-100) Mean Corpuscular Hemoglobin 33 pg (25-35) Mean Corpuscular Hemoglobin Concent 33 g/dL (31-37) Red Cell Distribution Width 13.1 % (11.5-14.5) Platelet Count 286 x10^3/uL (140-400) Neutrophils (%) (Auto) 51 % (31-73) Lymphocytes (%) (Auto) 37 % (24-48) Monocytes (%) (Auto) 9 % (0-9) Eosinophils (%) (Auto) 3 % (0-3) Basophils (%) (Auto) 1 % (0-3) Neutrophils # (Auto) 2.6 x10^3uL (1.8-7.7) Lymphocytes # (Auto) 1.8 x10^3/uL (1.0-4.8) Monocytes # (Auto) 0.4 x10^3/uL (0.0-1.1) Eosinophils # (Auto) 0.1 x10^3/uL (0.0-0.7) Basophils # (Auto) 0.0 x10^3/uL (0.0-0.2) Sodium Level 139 mmol/L (136-145) Potassium Level 4.4 mmol/L (3.5-5.1) Chloride Level 103 mmol/L (98-107) Carbon Dioxide Level 27 mmol/L (21-32) Anion Gap 9 (6-14) Blood Urea Nitrogen 15 mg/dL (7-20) Creatinine 0.8 mg/dL (0.6-1.0) Estimated GFR (Cockcroft-Gault) 73.9 Glucose Level 113 mg/dL (70-99) Calcium Level 9.1 mg/dL (8.5-10.1) Assessment/Plan Assessment/Plan cellulitis will check us to eval if possible underlying abscess MARIAN MOON MD 10/01/18 1114: CONSULT Assessment/Plan Assessment/Plan Pt seen and examined. Agree with Ms. Lopez's note Pt feels better did have I and D in ER. cellulitis improved cont local wound care and abx US pending, no surgical plans Thanks for consult! JOSE L LOPEZ GENERAL [employer] WORKER Oct 01, 2018 10:49 MARIAN MOON MD Oct 01, 2018 11:14
[2018-10-01 11:00] VITALS: BP 165/91
--- NOTE | 2018-10-01 11:26 | PDOC ---
Infectious Disease Note Subjective Subjective Feels better. Less swelling No F/C/S/N/V/D/SOA/Rash ROS ROS o/w neg Vital Sign Vital Signs Vital Signs Date Time Temp Pulse Resp B/P (MAP) Pulse Ox O2 Delivery O2 Flow Rate FiO2 10/01/18 10:03 72 144/90 10/01/18 10:03 Room Air 10/01/18 07:00 97.7 99 97.7 10/01/18 02:59 18 Physical Exam PHYSICAL EXAM GENERAL: The patient is propped up in bed, alert, in no apparent distress. ambulated in hallway HEENT: Pupils equally round. Normal conjunctivae. Oral cavity, pharynx pink and moist. NECK: Supple. LUNGS: Clear to auscultation. HEART: S1 and S2. No murmurs appreciated. ABDOMEN: Obese, soft and nontender with bowel sounds present. EXTREMITIES: Unremarkable except left lower leg is trace edematous. She has a wound on the posterior calf with surrounding redness, induration and is tender but improved more today. SKIN: Warm without rash. NEUROLOGIC: Alert and oriented x 3. Labs Lab Laboratory Tests Test 10/01/18 09:10 White Blood Count 5.0 x10^3/uL (4.0-11.0) Red Blood Count 3.92 x10^6/uL (3.50-5.40) Hemoglobin 13.0 g/dL (12.0-15.5) Hematocrit 38.9 % (36.0-47.0) Mean Corpuscular Volume 99 fL (79-100) Mean Corpuscular Hemoglobin 33 pg (25-35) Mean Corpuscular Hemoglobin Concent 33 g/dL (31-37) Red Cell Distribution Width 13.1 % (11.5-14.5) Platelet Count 286 x10^3/uL (140-400) Neutrophils (%) (Auto) 51 % (31-73) Lymphocytes (%) (Auto) 37 % (24-48) Monocytes (%) (Auto) 9 % (0-9) Eosinophils (%) (Auto) 3 % (0-3) Basophils (%) (Auto) 1 % (0-3) Neutrophils # (Auto) 2.6 x10^3uL (1.8-7.7) Lymphocytes # (Auto) 1.8 x10^3/uL (1.0-4.8) Monocytes # (Auto) 0.4 x10^3/uL (0.0-1.1) Eosinophils # (Auto) 0.1 x10^3/uL (0.0-0.7) Basophils # (Auto) 0.0 x10^3/uL (0.0-0.2) Sodium Level 139 mmol/L (136-145) Potassium Level 4.4 mmol/L (3.5-5.1) Chloride Level 103 mmol/L (98-107) Carbon Dioxide Level 27 mmol/L (21-32) Anion Gap 9 (6-14) Blood Urea Nitrogen 15 mg/dL (7-20) Creatinine 0.8 mg/dL (0.6-1.0) Estimated GFR (Cockcroft-Gault) 73.9 Glucose Level 113 mg/dL (70-99) Calcium Level 9.1 mg/dL (8.5-10.1) Micro Microbiology 09/27/18 Blood Culture - Final, Complete Objective Assessment Bacteremia with GPC suggestive of staph from 09/27 (1 of 2 bottles) Cellulitis and abscess LLE s/p bedside I and D in ER 09/26. no cultures done HTN Anxiety Morbid obesity w/ BMI 45 Plan Plan of Care Cont vanc D/c cefepime F/u U/S Trough 14.0 Awaiting GPC ID/susceptibilities Monitor WBC/temp and renal function closely Local wound care D/w ALICE MONTILLA MD Oct 01, 2018 11:26
[2018-10-01 15:00] VITALS: BP 125/74
--- NOTE | 2018-10-01 17:12 | RAD ---
Examination: EXT NON VASC LEFT History: LT CALF PAIN/REDNESS/?ABSCESS Comparison/Correlation: None Findings: Ultrasound imaging of the left calf was performed. Varicose veins are noted in the region of pain and erythema reportedly. No focal collection of fluid. Subcutaneous edema is present. Impression: Varicose veins at the left posterior calf at the reported site of symptoms. No loculated collections. No abscess. Electronically signed by: Americo Rosenberg MD (10/01/2018 5:09 PM) [facility]
[2018-10-01 19:00] VITALS: BP 134/85
[2018-10-01 23:00] VITALS: BP 137/83
[2018-10-02] MEDS: HYDROcodone/APAP 5/325MG 1 TAB TABLET PO PRN ×2 (02:58→08:17)
[2018-10-02 03:00] VITALS: BP 109/79
[2018-10-02 05:57] LABS: BASO % 1 % (0-3); EOS # 0.1 x10^3/uL (0.0-0.7); EOS % 3 % (0-3); HEMATOCRIT 38.4 % (36.0-47.0); LYMPH # 1.9 x10^3/uL (1.0-4.8); LYMPH % 44 % (24-48); MEAN CORPUSCULAR HEMOGLOBIN 34 pg (25-35); MEAN CORPUSCULAR HGB CONC 34 g/dL (31-37); MEAN CORPUSCULAR VOLUME 99 fL (79-100); MONO # 0.5 x10^3/uL (0.0-1.1); MONO % 11 % (0-9); NEUT # 1.7 x10^3uL (1.8-7.7); NEUT % 40 % (31-73); PLATELET COUNT 256 x10^3/uL (140-400); RED BLOOD COUNT 3.89 x10^6/uL (3.50-5.40); WHITE BLOOD COUNT 4.3 x10^3/uL (4.0-11.0)
[2018-10-02] MEDS: HEPARIN for SUB-Q USE 5,000 UNIT/ML VIAL. SQ SCH ×2 (06:00→08:51)
[2018-10-02 06:05] LABS: CREATININE 0.7 mg/dL (0.6-1.0); GFR 86.2; POTASSIUM 4.1 mmol/L (3.5-5.1)
[2018-10-02 07:00] VITALS: BP 156/104
[2018-10-02] MEDS: LISINOPRIL 20 MG TABLET PO SCH (08:14)
[2018-10-02] MEDS: hydroCHLOROthiazide 25 MG TABLET PO SCH (08:14)
[2018-10-02] MEDS: LACTOBACILLUS RHAMNOSUS GG 1 CAPSULE. PO SCH (08:15)
[2018-10-02] MEDS: NICOTINE 14MG PATCH. TD PRN (08:17)
[2018-10-02] MEDS ORDERED: VANCOMYCIN PER PHARMACY MC PRN (09:15)
[2018-10-02] MEDS ORDERED: LINEZOLID 600 MG TABLET PO SCH (09:15)
--- NOTE | 2018-10-02 09:20 | PDOC ---
Infectious Disease Note Subjective Subjective Feels better. Less swelling Hoping to go home No F/C/S/N/V/D/SOA/Rash Vital Sign Vital Signs Vital Signs Date Time Temp Pulse Resp B/P (MAP) Pulse Ox O2 Delivery O2 Flow Rate FiO2 10/02/18 09:10 20 96 Room Air 10/02/18 08:14 66 109/79 10/02/18 07:00 97.7 97.7 Physical Exam PHYSICAL EXAM GENERAL: The patient is ambulating in hallway and room. alert, in no apparent distress. ambulated in hallway HEENT: Pupils equally round. Normal conjunctivae. Oral cavity, pharynx pink and moist. NECK: Supple. LUNGS: Clear to auscultation. HEART: S1 and S2. No murmurs appreciated. ABDOMEN: Obese, soft and nontender with bowel sounds present. EXTREMITIES: Unremarkable except left lower leg is trace edematous. She has a wound on the posterior calf with surrounding redness, induration and is tender but improved more today. SKIN: Warm without rash. NEUROLOGIC: Alert and oriented x 3. Labs Lab Laboratory Tests Test 10/02/18 05:30 White Blood Count 4.3 x10^3/uL (4.0-11.0) Red Blood Count 3.89 x10^6/uL (3.50-5.40) Hemoglobin 13.0 g/dL (12.0-15.5) Hematocrit 38.4 % (36.0-47.0) Mean Corpuscular Volume 99 fL (79-100) Mean Corpuscular Hemoglobin 34 pg (25-35) Mean Corpuscular Hemoglobin Concent 34 g/dL (31-37) Red Cell Distribution Width 13.0 % (11.5-14.5) Platelet Count 256 x10^3/uL (140-400) Neutrophils (%) (Auto) 40 % (31-73) Lymphocytes (%) (Auto) 44 % (24-48) Monocytes (%) (Auto) 11 % (0-9) Eosinophils (%) (Auto) 3 % (0-3) Basophils (%) (Auto) 1 % (0-3) Neutrophils # (Auto) 1.7 x10^3uL (1.8-7.7) Lymphocytes # (Auto) 1.9 x10^3/uL (1.0-4.8) Monocytes # (Auto) 0.5 x10^3/uL (0.0-1.1) Eosinophils # (Auto) 0.1 x10^3/uL (0.0-0.7) Basophils # (Auto) 0.0 x10^3/uL (0.0-0.2) Sodium Level 140 mmol/L (136-145) Potassium Level 4.1 mmol/L (3.5-5.1) Chloride Level 105 mmol/L (98-107) Carbon Dioxide Level 28 mmol/L (21-32) Anion Gap 7 (6-14) Blood Urea Nitrogen 13 mg/dL (7-20) Creatinine 0.7 mg/dL (0.6-1.0) Estimated GFR (Cockcroft-Gault) 86.2 Glucose Level 104 mg/dL (70-99) Calcium Level 9.0 mg/dL (8.5-10.1) Micro Staphylococcus hominis Recovered from aerobic bottle only. Based on resistance to oxacillin this isolate would be resistant to all currently available beta-lactam antimicrobial agents, with the exception of the newer cephalosporins with anti-MRSA activity, such as Ceftaroline ANTIMICROBIAL SUSCEPTIBILITY Final Comment S = Susceptible; I = Intermediate; R = Resistant P = Positive; N = Negative MICS are expressed in micrograms per mL Antibiotic RSLT#1 RSLT#2 RSLT#3 RSLT#4 Ciprofloxacin S<=0.5 Clindamycin S<=0.25 Erythromycin R>=8 Gentamicin S<=0.5 Levofloxacin S<=0.12 Nitrofurantoin S<=16 Oxacillin R =R Penicillin R>=0.5 Rifampin S<=0.5 Tetracycline S<=1 Trimethoprim/Sulfa S<=10 Vancomycin S<=0.5 Microbiology 09/27/18 Blood Culture - Final, Complete Objective Assessment Bacteremia with GPC suggestive of staph from 09/27 (1 of 2 bottles) - contamination staph hominis Cellulitis and abscess LLE s/p bedside I and D in ER 09/26. no cultures done U/S neg HTN Anxiety Morbid obesity w/ BMI 45 Plan Plan of Care D/cont vanc with staph hominis Add Zyvox po - check out patient cost but could use Silvextro 200 mg po Qday if Zyvox not covered - Rx written for both for case management local wound care D/w D/w Pharmacy as Vanc was d/c'd and I was informed that I stopped the Vanc but this is the second patient on 10/01 that the Vanc was stopped under my name but I did not stop the Vanc. The order signed at 11:50 but note finished 11:26 ALICE MONTILLA MD Oct 02, 2018 09:20
[2018-10-02] MEDS ORDERED: VANCOMYCIN 2 GM in IV NORMAL SALINE 500ML BAG 500 ML IV ONE (09:30)
--- NOTE | 2018-10-02 10:14 | PDOC ---
SURGICAL PROGRESS NOTE Subjective improved still some pain to leg, overall improved Vital Signs Vital Signs Date Time Temp Pulse Resp B/P (MAP) Pulse Ox O2 Delivery O2 Flow Rate FiO2 10/02/18 09:10 20 96 Room Air 10/02/18 08:14 66 109/79 10/02/18 07:00 97.7 97.7 I&O Intake and Output 10/02/18 07:00 Intake Total 1700 ml Balance 1700 ml Intake Oral 1200 ml IV Total 500 ml # Voids 5 General: Alert, Oriented X3, Cooperative, No acute distress Extremities: Other (left leg, no erythema, small wound clean) Labs Laboratory Tests Test 10/01/18 09:10 10/02/18 05:30 White Blood Count 5.0 x10^3/uL (4.0-11.0) 4.3 x10^3/uL (4.0-11.0) Red Blood Count 3.92 x10^6/uL (3.50-5.40) 3.89 x10^6/uL (3.50-5.40) Hemoglobin 13.0 g/dL (12.0-15.5) 13.0 g/dL (12.0-15.5) Hematocrit 38.9 % (36.0-47.0) 38.4 % (36.0-47.0) Mean Corpuscular Volume 99 fL (79-100) 99 fL (79-100) Mean Corpuscular Hemoglobin 33 pg (25-35) 34 pg (25-35) Mean Corpuscular Hemoglobin Concent 33 g/dL (31-37) 34 g/dL (31-37) Red Cell Distribution Width 13.1 % (11.5-14.5) 13.0 % (11.5-14.5) Platelet Count 286 x10^3/uL (140-400) 256 x10^3/uL (140-400) Neutrophils (%) (Auto) 51 % (31-73) 40 % (31-73) Lymphocytes (%) (Auto) 37 % (24-48) 44 % (24-48) Monocytes (%) (Auto) 9 % (0-9) 11 % (0-9) Eosinophils (%) (Auto) 3 % (0-3) 3 % (0-3) Basophils (%) (Auto) 1 % (0-3) 1 % (0-3) Neutrophils # (Auto) 2.6 x10^3uL (1.8-7.7) 1.7 x10^3uL (1.8-7.7) Lymphocytes # (Auto) 1.8 x10^3/uL (1.0-4.8) 1.9 x10^3/uL (1.0-4.8) Monocytes # (Auto) 0.4 x10^3/uL (0.0-1.1) 0.5 x10^3/uL (0.0-1.1) Eosinophils # (Auto) 0.1 x10^3/uL (0.0-0.7) 0.1 x10^3/uL (0.0-0.7) Basophils # (Auto) 0.0 x10^3/uL (0.0-0.2) 0.0 x10^3/uL (0.0-0.2) Sodium Level 139 mmol/L (136-145) 140 mmol/L (136-145) Potassium Level 4.4 mmol/L (3.5-5.1) 4.1 mmol/L (3.5-5.1) Chloride Level 103 mmol/L (98-107) 105 mmol/L (98-107) Carbon Dioxide Level 27 mmol/L (21-32) 28 mmol/L (21-32) Anion Gap 9 (6-14) 7 (6-14) Blood Urea Nitrogen 15 mg/dL (7-20) 13 mg/dL (7-20) Creatinine 0.8 mg/dL (0.6-1.0) 0.7 mg/dL (0.6-1.0) Estimated GFR (Cockcroft-Gault) 73.9 86.2 Glucose Level 113 mg/dL (70-99) 104 mg/dL (70-99) Calcium Level 9.1 mg/dL (8.5-10.1) 9.0 mg/dL (8.5-10.1) Laboratory Tests Test 10/02/18 05:30 White Blood Count 4.3 x10^3/uL (4.0-11.0) Red Blood Count 3.89 x10^6/uL (3.50-5.40) Hemoglobin 13.0 g/dL (12.0-15.5) Hematocrit 38.4 % (36.0-47.0) Mean Corpuscular Volume 99 fL (79-100) Mean Corpuscular Hemoglobin 34 pg (25-35) Mean Corpuscular Hemoglobin Concent 34 g/dL (31-37) Red Cell Distribution Width 13.0 % (11.5-14.5) Platelet Count 256 x10^3/uL (140-400) Neutrophils (%) (Auto) 40 % (31-73) Lymphocytes (%) (Auto) 44 % (24-48) Monocytes (%) (Auto) 11 % (0-9) Eosinophils (%) (Auto) 3 % (0-3) Basophils (%) (Auto) 1 % (0-3) Neutrophils # (Auto) 1.7 x10^3uL (1.8-7.7) Lymphocytes # (Auto) 1.9 x10^3/uL (1.0-4.8) Monocytes # (Auto) 0.5 x10^3/uL (0.0-1.1) Eosinophils # (Auto) 0.1 x10^3/uL (0.0-0.7) Basophils # (Auto) 0.0 x10^3/uL (0.0-0.2) Sodium Level 140 mmol/L (136-145) Potassium Level 4.1 mmol/L (3.5-5.1) Chloride Level 105 mmol/L (98-107) Carbon Dioxide Level 28 mmol/L (21-32) Anion Gap 7 (6-14) Blood Urea Nitrogen 13 mg/dL (7-20) Creatinine 0.7 mg/dL (0.6-1.0) Estimated GFR (Cockcroft-Gault) 86.2 Glucose Level 104 mg/dL (70-99) Calcium Level 9.0 mg/dL (8.5-10.1) Assessment/Plan no abscess on US supportive measures no surgical plans JOSE L SHERIDAN APRN Oct 02, 2018 10:14
[2018-10-02 11:00] VITALS: BP 121/83
--- NOTE | 2018-10-02 13:11 | NUR ---
SW following pt. Pt does not have skilled needs. Spoke with Katelyn at [facility] In [place]. Katelyn requested for orders to be faxed to pt's Pharmacy so they can run benefits for PO Zyvox. Orders faxed to Pharmacy and awaiting to hear back on benefits.
--- NOTE | 2018-10-02 13:38 | NUR ---
SW following pt. SW notified by Katelyn from pt's Pharmacy, co-pay for PO zyvox is only $10. Discussed with pt at bedside and she is agreeable. Rx on chart. Physician notified. BRINA NAVA.
[2018-10-02] MEDS ORDERED: LINE600T PO (13:46)
--- NOTE | 2018-10-02 13:49 | PDOC3 ---
Discharge Summary Visit Information Date of Admission: Sep 27, 2018 Date of Discharge: Oct 02, 2018 Admitting Diagnosis: cellulitis Final Diagnosis acute Lower Extremity swelling and pain - Cellulitis bacteremia obesity, BMI 45 Brief Hospital Course Allergies Allergies Coded Allergies Type Severity Reaction Last Updated Verified No Known Drug Allergies 09/26/18 No Vital Signs Vital Signs Date Time Temp Pulse Resp B/P (MAP) Pulse Ox O2 Delivery O2 Flow Rate FiO2 10/02/18 11:00 98.0 70 18 121/83 (96) 94 Room Air 98.0 Lab Results Laboratory Tests Test 10/01/18 09:10 10/02/18 05:30 White Blood Count 5.0 x10^3/uL (4.0-11.0) 4.3 x10^3/uL (4.0-11.0) Red Blood Count 3.92 x10^6/uL (3.50-5.40) 3.89 x10^6/uL (3.50-5.40) Hemoglobin 13.0 g/dL (12.0-15.5) 13.0 g/dL (12.0-15.5) Hematocrit 38.9 % (36.0-47.0) 38.4 % (36.0-47.0) Mean Corpuscular Volume 99 fL (79-100) 99 fL (79-100) Mean Corpuscular Hemoglobin 33 pg (25-35) 34 pg (25-35) Mean Corpuscular Hemoglobin Concent 33 g/dL (31-37) 34 g/dL (31-37) Red Cell Distribution Width 13.1 % (11.5-14.5) 13.0 % (11.5-14.5) Platelet Count 286 x10^3/uL (140-400) 256 x10^3/uL (140-400) Neutrophils (%) (Auto) 51 % (31-73) 40 % (31-73) Lymphocytes (%) (Auto) 37 % (24-48) 44 % (24-48) Monocytes (%) (Auto) 9 % (0-9) 11 % (0-9) Eosinophils (%) (Auto) 3 % (0-3) 3 % (0-3) Basophils (%) (Auto) 1 % (0-3) 1 % (0-3) Neutrophils # (Auto) 2.6 x10^3uL (1.8-7.7) 1.7 x10^3uL (1.8-7.7) Lymphocytes # (Auto) 1.8 x10^3/uL (1.0-4.8) 1.9 x10^3/uL (1.0-4.8) Monocytes # (Auto) 0.4 x10^3/uL (0.0-1.1) 0.5 x10^3/uL (0.0-1.1) Eosinophils # (Auto) 0.1 x10^3/uL (0.0-0.7) 0.1 x10^3/uL (0.0-0.7) Basophils # (Auto) 0.0 x10^3/uL (0.0-0.2) 0.0 x10^3/uL (0.0-0.2) Sodium Level 139 mmol/L (136-145) 140 mmol/L (136-145) Potassium Level 4.4 mmol/L (3.5-5.1) 4.1 mmol/L (3.5-5.1) Chloride Level 103 mmol/L (98-107) 105 mmol/L (98-107) Carbon Dioxide Level 27 mmol/L (21-32) 28 mmol/L (21-32) Anion Gap 9 (6-14) 7 (6-14) Blood Urea Nitrogen 15 mg/dL (7-20) 13 mg/dL (7-20) Creatinine 0.8 mg/dL (0.6-1.0) 0.7 mg/dL (0.6-1.0) Estimated GFR (Cockcroft-Gault) 73.9 86.2 Glucose Level 113 mg/dL (70-99) 104 mg/dL (70-99) Calcium Level 9.1 mg/dL (8.5-10.1) 9.0 mg/dL (8.5-10.1) Laboratory Tests Test 10/02/18 05:30 White Blood Count 4.3 x10^3/uL (4.0-11.0) Red Blood Count 3.89 x10^6/uL (3.50-5.40) Hemoglobin 13.0 g/dL (12.0-15.5) Hematocrit 38.4 % (36.0-47.0) Mean Corpuscular Volume 99 fL (79-100) Mean Corpuscular Hemoglobin 34 pg (25-35) Mean Corpuscular Hemoglobin Concent 34 g/dL (31-37) Red Cell Distribution Width 13.0 % (11.5-14.5) Platelet Count 256 x10^3/uL (140-400) Neutrophils (%) (Auto) 40 % (31-73) Lymphocytes (%) (Auto) 44 % (24-48) Monocytes (%) (Auto) 11 % (0-9) Eosinophils (%) (Auto) 3 % (0-3) Basophils (%) (Auto) 1 % (0-3) Neutrophils # (Auto) 1.7 x10^3uL (1.8-7.7) Lymphocytes # (Auto) 1.9 x10^3/uL (1.0-4.8) Monocytes # (Auto) 0.5 x10^3/uL (0.0-1.1) Eosinophils # (Auto) 0.1 x10^3/uL (0.0-0.7) Basophils # (Auto) 0.0 x10^3/uL (0.0-0.2) Sodium Level 140 mmol/L (136-145) Potassium Level 4.1 mmol/L (3.5-5.1) Chloride Level 105 mmol/L (98-107) Carbon Dioxide Level 28 mmol/L (21-32) Anion Gap 7 (6-14) Blood Urea Nitrogen 13 mg/dL (7-20) Creatinine 0.7 mg/dL (0.6-1.0) Estimated GFR (Cockcroft-Gault) 86.2 Glucose Level 104 mg/dL (70-99) Calcium Level 9.0 mg/dL (8.5-10.1) Brief Hospital Course Ms. Hercules is a 58 old admti with marked left lower extremitity cellulitis with small induration treated as abcess, I+D done in ER, not much fluid, then induration days later persisted, gen surg consult, US neg fro abcess, cont the Abx, staph hominis blood cx Add Zyvox Discharge Information Condition at Discharge: Improved Follow Up: Weeks Disposition/Orders: D/C to Home Scheduled Alprazolam (Alprazolam) 1 Mg Tablet, 1 TAB PO Daily(At bedtime) for anxiety , #60 (Reported) Entered as Reported by: TYRELL NUNEZ RN on 09/27/18 0247 Last Action: HELD on 09/27/181544 by TRINITY JACOBO MD Linezolid (Zyvox) 600 Mg Tablet, 600 MG PO BID for cellulitis, #10 Prescribed by: MONIK BONE on 10/02/18 1346 Lisinopril/Hydrochlorothiazide (Lisinopril-Hctz 20-25 Mg Tab) 1 Each Tablet, 1 TAB PO DAILY, #30 Ref 5 (Reported) Entered as Reported by: CHANDRA DEJESUS on 09/26/182206 Last Action: Converted on 09/27/181537 by TRINITY JACOBO MD Patient Instructions Patient Instructions > 30 min coordination of care MONIK BONE MD Oct 02, 2018 13:49
[2018-10-02] MEDS ORDERED: HYDR-2761 PO (14:19)
--- NOTE | 2018-10-02 14:27 | NUR ---
Discharge Note: SCARLETT JOYCE [address] Discharge instructions and discharge home medications reviewed with Patient and a copy given. All questions have been answered and understanding verbalized. The following instructions and handouts were given: d/c instructions and dressing change demonstration given to patient and verbally understood how to complete on own at home without assistance. Discontinued lines and drains: Peripheral IV intact. Patient discharged to Home or Self Care with Self via Wheelchair
== END 2018-10-02 16:00 | disposition home or self-care (01) | DRG 603 ==
LOC: ER 20:59 → 5 NORTH 09-27 00:12
PROVIDERS: ADMIT Internal Medicine; ATTEND Internal Medicine
PROC: 0Y9B0ZZ Drainage of Left Lower Extremity, Open Approach (ICD-10-PCS; principal; 2018-09-27)
DX: L03.116 Cellulitis of left lower limb (principal); Z68.42 Body mass index [BMI] 45.0-49.9, adult; L02.416 Cutaneous abscess of left lower limb; I10 Essential (primary) hypertension; E66.01 Morbid (severe) obesity due to excess calories; F41.9 Anxiety disorder, unspecified; F17.210 Nicotine dependence, cigarettes, uncomplicated
CPT/HCPCS: 10060; 36415; 73590; 76881; 80048; 80202; 82565; 83605; 84145; 85025; 85651; 86140; 87040; 87077; 87205; 93971; 96365; J0692; J2543; J3370; J7040; 99285-25

== ENCOUNTER 2018-10-25 10:32 | Emergency (ER) | payer OTHER ==
[~2018-10-25] VITALS: Ht 168.9 cm; Wt 105.5 kg
[~2018-10-25 10:32] MED LIST: ALPR1TAB6 PO; HYDR-2761 PO; LINE600T PO; LISI1TAB7 PO
[2018-10-25 13:34] LABS: BASO % 0 % (0-3); EOS # 0.1 x10^3/uL (0.0-0.7); EOS % 1 % (0-3); HEMATOCRIT 40.7 % (36.0-47.0); HEMOGLOBIN 13.3 g/dL (12.0-15.5); LYMPH # 2.3 x10^3/uL (1.0-4.8); LYMPH % 34 % (24-48); MEAN CORPUSCULAR HEMOGLOBIN 33 pg (25-35); MEAN CORPUSCULAR HGB CONC 33 g/dL (31-37); MEAN CORPUSCULAR VOLUME 100 fL (79-100); MONO # 0.5 x10^3/uL (0.0-1.1); MONO % 8 % (0-9); NEUT # 3.9 x10^3uL (1.8-7.7); NEUT % 57 % (31-73); PLATELET COUNT 279 x10^3/uL (140-400); RED BLOOD COUNT 4.07 x10^6/uL (3.50-5.40); RED CELL DISTRIBUTION WIDTH 13.8 % (11.5-14.5); WHITE BLOOD COUNT 6.8 x10^3/uL (4.0-11.0)
[2018-10-25 13:48] LABS: CALCIUM 9.2 mg/dL (8.5-10.1); CREATININE 0.7 mg/dL (0.6-1.0); GFR 86.2; POTASSIUM 3.4 mmol/L (3.5-5.1)
[2018-10-25 13:53] LABS: ALBUMIN 3.5 g/dL (3.4-5.0); ALBUMIN/GLOBULIN RATIO 0.9 (1.0-1.7); TOTAL BILIRUBIN 0.5 mg/dL (0.2-1.0); TOTAL PROTEIN 7.3 g/dL (6.4-8.2)
[2018-10-25] MEDS ORDERED: LINE600T PO (14:49)
[2018-10-25] MEDS ORDERED: AMOX1TAB61 PO (14:49)
--- NOTE | 2018-10-25 14:49 | PHYS DOC ---
Past Medical History Past Medical History: Anxiety, Hypertension (ALBA WILSON APRN) Past Surgical History: Tonsillectomy, Tubal ligation (ALBA WILSON APRN) Alcohol Use: None Drug Use: None (ALBA WILSON APRN) Adult General Chief Complaint Chief Complaint: ABSCESS HPI HPI Patient is a 58 year old female with history of anxiety, hypertension, who presents to the ED today complaining of abscess to bilateral lower extremities that she noted yesterday. Patient states she was admitted last month for an abscess on the left calf. She states she was discharged home with Zyvox. She st ates she took the medication as prescribed until completed. Patient denies any fever, denies any nausea vomiting. Patient is very concerned, she states last time she was admitted she was septic (ALBA WILSON APRN) Review of Systems Review of Systems Constitutional: Denies fever or chills [] Eyes: Denies change in visual acuity, redness, or eye pain [] HENT: Denies nasal congestion or sore throat [] Respiratory: Denies cough or shortness of breath [] Cardiovascular: No additional information not addressed in HPI [] GI: Denies abdominal pain, nausea, vomiting, bloody stools or diarrhea [] : Denies dysuria or hematuria [] Musculoskeletal: Denies back pain or joint pain [] Integument: Bilateral lower extremity abscess Neurologic: Denies headache, focal weakness or sensory changes [] All other systems were reviewed and found to be within normal limits, except as documented in this note. (ALBA WILSON APRN) Allergies Allergies Allergies Coded Allergies Type Severity Reaction Last Updated Verified No Known Drug Allergies 10/25/18 No (MITCHELL REYES DO) Physical Exam Physical Exam Constitutional: Well developed, well nourished, no acute distress, non-toxic appearance. [] HENT: Normocephalic, atraumatic, bilateral external ears normal, oropharynx moist, no oral exudates, nose normal. [] Eyes: PERRLA, EOMI, conjunctiva normal, no discharge. [] Neck: Normal range of motion, no tenderness, supple, no stridor. [] Cardiovascular:Heart rate regular rhythm, no murmur [] Lungs & Thorax: Bilateral breath sounds clear to auscultation [] Abdomen: Bowel sounds normal, soft, no tenderness, no masses, no pulsatile masses. [] Skin: Right inner thigh with none indurated erythematous areas consistent with cellulitis approximately 3 x 3 cm each. No fluctuance to the area. Posterior left thigh with another none indurated erythematous area approximately 2 x 2 centimeters consistent with sent to light is with a tiny scabbed region in the center. Both areas are warm and tender to touch. No fluctuance. Back: No tenderness, no CVA tenderness. [] Extremities: No tenderness, no cyanosis, no clubbing, ROM intact, no edema. [] Neurologic: Alert and oriented X 3, normal motor function, normal sensory function, no focal deficits noted. [] Psychologic: Affect normal, judgement normal, mood normal. [] (ALBA WILSON APRN) Current Patient Data Vital Signs Vital Signs Date Time Temp Pulse Resp B/P (MAP) Pulse Ox O2 Delivery O2 Flow Rate FiO2 10/25/18 15:04 80 16 97 10/25/18 10:48 97.7 144/91 (108) Room Air 97.7 (REYES,MITCHELL R DO) Lab Values Laboratory Tests Test 10/25/18 13:15 White Blood Count 6.8 x10^3/uL (4.0-11.0) Red Blood Count 4.07 x10^6/uL (3.50-5.40) Hemoglobin 13.3 g/dL (12.0-15.5) Hematocrit 40.7 % (36.0-47.0) Mean Corpuscular Volume 100 fL (79-100) Mean Corpuscular Hemoglobin 33 pg (25-35) Mean Corpuscular Hemoglobin Concent 33 g/dL (31-37) Red Cell Distribution Width 13.8 % (11.5-14.5) Platelet Count 279 x10^3/uL (140-400) Neutrophils (%) (Auto) 57 % (31-73) Lymphocytes (%) (Auto) 34 % (24-48) Monocytes (%) (Auto) 8 % (0-9) Eosinophils (%) (Auto) 1 % (0-3) Basophils (%) (Auto) 0 % (0-3) Neutrophils # (Auto) 3.9 x10^3uL (1.8-7.7) Lymphocytes # (Auto) 2.3 x10^3/uL (1.0-4.8) Monocytes # (Auto) 0.5 x10^3/uL (0.0-1.1) Eosinophils # (Auto) 0.1 x10^3/uL (0.0-0.7) Basophils # (Auto) 0.0 x10^3/uL (0.0-0.2) Erythrocyte Sedimentation Rate 20 (0-25) Sodium Level 142 mmol/L (136-145) Potassium Level 3.4 mmol/L (3.5-5.1) L Chloride Level 104 mmol/L (98-107) Carbon Dioxide Level 28 mmol/L (21-32) Anion Gap 10 (6-14) Blood Urea Nitrogen 12 mg/dL (7-20) Creatinine 0.7 mg/dL (0.6-1.0) Estimated GFR (Cockcroft-Gault) 86.2 BUN/Creatinine Ratio 17 (6-20) Glucose Level 88 mg/dL (70-99) Calcium Level 9.2 mg/dL (8.5-10.1) Total Bilirubin 0.5 mg/dL (0.2-1.0) Aspartate Amino Transferase (AST) 21 U/L (15-37) Alanine Aminotransferase (ALT) 26 U/L (14-59) Alkaline Phosphatase 104 U/L (46-116) C-Reactive Protein, Quantitative 9.0 mg/L (0-3.3) H Total Protein 7.3 g/dL (6.4-8.2) Albumin 3.5 g/dL (3.4-5.0) Albumin/Globulin Ratio 0.9 (1.0-1.7) L Laboratory Tests 10/25/18 13:15 Laboratory Tests 10/25/18 13:15 (MITCHELL REYES DO) EKG EKG [] (ALBA WILSON APRN) Radiology/Procedures Radiology/Procedures [] (ALBA WILSON APRN) Course & Med Decision Making Course & Med Decision Making Pertinent Labs and Imaging studies reviewed. (See chart for details) This is a 58-year-old female patient presenting to the ED today with cellulitis on the right inner thigh and left posterior thigh. Patient has history of abscess on the left calf, she was admitted back in September for the same. See history of present illness. Labs with normal WBC. BMP with nothing acute. Sedimentation rate 1.9. Patient is afebrile. I spoke to -infectious disease, recommended we discharge patient to home with Zyvox and Augmentin. Tetanus up-to-date. (ALBA WILSON APRN) Dragon Disclaimer Dragon Disclaimer This electronic medical record was generated, in whole or in part, using a voice recognition dictation system. (ALBA WILSON APRN) Departure Departure Impression: Primary Impression: Bilateral lower leg cellulitis Disposition: HOME, SELF-CARE Condition: STABLE Referrals: JANAY GREY MD (PCP) follow up in 1 week ALICE MONTILLA MD follow up in 1 week Patient Instructions: Cellulitis, [id number] Additional Instructions: You were evaluated in the emergency for cellulitis/skin infection. We put you know antibiotics, take them as prescribed until completed. Please follow-up with your primary care doctor as well as the infectious disease doctor provided Scripts Linezolid (ZYVOX) 600 Mg Tablet 600 MG PO BID, #14 TAB Prov: ALAB WILSON APRN 10/25/18 Amoxicillin/Potassium Clav (AUGMENTIN 875-125 TABLET) 1 Each Tablet 1 TAB PO BID, #14 TAB Prov: ALBA WILSON APRN 10/25/18 Attending Signature Attending Signature I have reviewed the PA/DIGITAL ACCOUNT MANAGER's note and plan of care. I was available for consultation as needed during the patient's visit in the emergency department. I agree with the clinical impression, plan, and disposition. (MITCHELL REYES DO) ALBA WILSON APRN October 25, 2018 14:49 MITCHELL REYES DO October 26, 2018 12:45
[2018-10-25 15:04] VITALS: BP 131/87
== END 2018-10-25 15:04 | disposition home or self-care (01) ==
LOC: ER 10:32
DX: L03.116 Cellulitis of left lower limb (principal); L03.115 Cellulitis of right lower limb; I10 Essential (primary) hypertension
CPT/HCPCS: 36415; 80053; 85025; 85651; 86140; 87040; 99284